=== PATIENT | female | born 1930 | race Caucasian/White ===

== ENCOUNTER 2018-04-20 14:06 | Emergency (ER) | payer MEDICARE, OTHER ==
[2018-04-20] MEDS: IV NORMAL SALINE 500ML BAG 500 ML IV (15:00)
[2018-04-20] MEDS: NEOMY/BACITR/POLYMYXIN OINT PACKET. TP (15:00)
[2018-04-20 15:17] LABS: BASO % 1 % (0-3); EOS % 1 % (0-3); LYMPH # 1.2 x10^3/uL (1.0-4.8); LYMPH % 32 % (24-48); MEAN CORPUSCULAR HEMOGLOBIN 32 pg (25-35); MEAN CORPUSCULAR HGB CONC 34 g/dL (31-37); MEAN CORPUSCULAR VOLUME 94 fL (79-100); MONO # 0.8 x10^3/uL (0.0-1.1); MONO % 19 % (0-9); NEUT # 1.8 x10^3uL (1.8-7.7); NEUT % 47 % (31-73); PLATELET COUNT 182 x10^3/uL (140-400); RED BLOOD COUNT 4.05 x10^6/uL (3.50-5.40); WHITE BLOOD COUNT 3.9 x10^3/uL (4.0-11.0)
[2018-04-20 15:34] LABS: ADD MAN DIFF? YES
[2018-04-20 16:27] LABS: ANION GAP 10 (6-14); BLOOD UREA NITROGEN 36 mg/dL (7-20); BUN/CREATININE RATIO 28 (6-20); CALCIUM 9.1 mg/dL (8.5-10.1); CARBON DIOXIDE 26 mmol/L (21-32); CHLORIDE 100 mmol/L (98-107); CREATININE 1.3 mg/dL (0.6-1.0); GFR 38.9; GLUCOSE 133 mg/dL (70-99); POTASSIUM 4.8 mmol/L (3.5-5.1); SODIUM 136 mmol/L (136-145)
[2018-04-20 16:35] LABS: ALBUMIN 3.8 g/dL (3.4-5.0); ALBUMIN/GLOBULIN RATIO 1.2 (1.0-1.7); ALK PHOS 124 U/L (46-116); ALT (SGPT) 7 U/L (14-59); AST (SGOT) 14 U/L (15-37); TOTAL BILIRUBIN 0.9 mg/dL (0.2-1.0); TOTAL PROTEIN 6.9 g/dL (6.4-8.2)
[2018-04-20 16:36] LABS: TROPONINI < 0.017 ng/mL (0.000-0.055)
[2018-04-20 16:41] LABS: CKMB MASS 1.2 ng/mL (0.0-3.6); CREATINE KINASE 66 U/L (26-192)
[2018-04-20 16:50] LABS: BILIRUBIN,URINE NEGATIVE (NEG); CLARITY,URINE CLEAR; COLOR,URINE YELLOW; GLUCOSE,URINE NEGATIVE (NEG); NITRITE,URINE NEGATIVE (NEG); PROTEIN,URINE 100 mg/dL (NEG-TRACE)
[2018-04-20 17:06] LABS: BACTERIA,URINE 0 /HPF (0-FEW); HYALINE CASTS, URINE MODERATE /HPF; RBC,URINE 0 /HPF (0-2); SQUAMOUS EPITHELIAL CELL,UR MOD /LPF; WBC,URINE 0 /HPF (0-4)
[2018-04-20 17:22] LABS: % BANDS 1 % (0-9); % EOS 1 % (0-5); % LYMPHS 32 % (24-48); % MONOS 13 % (0-10); % SEGS 53 % (35-66); ANISOCYTOSIS SLIGHT; PLT ESTIMATE ADEQUATE (ADEQUATE); POIKILOCYTOSIS SLIGHT; TEAR DROP CELLS FEW
== END 2018-04-20 18:39 | disposition home or self-care (01) ==
LOC: ER 14:06
DX: S52.591A Other fractures of lower end of right radius, initial encounter for closed fracture (principal); I10 Essential (primary) hypertension; E03.9 Hypothyroidism, unspecified; W18.39XA Other fall on same level, initial encounter; Y93.89 Activity, other specified; Y99.8 Other external cause status; Y92.89 Other specified places as the place of occurrence of the external cause
CPT/HCPCS: 29125; 36415; 70450; 72125; 73100; 80053; 81001; 82553; 83735; 84484; 85007; 85025; 93005; 99285-25; J7040

== ENCOUNTER 2018-08-26 12:24 | Emergency (ER) | payer MEDICARE, OTHER ==
[~2018-08-26] VITALS: Ht 152.4 cm; Wt 38.6 kg
[~2018-08-26 12:24] MED LIST: AMLO5TAB7 PO; CARB1TAB2 PO; CIPR250T30 PO; Hydrocodone/Acetaminophen PO; LACT1CAP19 PO; LEVO137T3 PO; LEVO25TA55 PO
[2018-08-26 13:15] LABS: BASO % 0 % (0-3); CALCIUM 9.3 mg/dL (8.5-10.1); CREATININE 0.8 mg/dL (0.6-1.0); EOS % 0 % (0-3); HEMATOCRIT 37.8 % (36.0-47.0); HEMOGLOBIN 13.2 g/dL (12.0-15.5); LYMPH # 1.7 x10^3/uL (1.0-4.8); LYMPH % 19 % (24-48); MEAN CORPUSCULAR HEMOGLOBIN 32 pg (25-35); MEAN CORPUSCULAR HGB CONC 35 g/dL (31-37); MEAN CORPUSCULAR VOLUME 92 fL (79-100); MONO # 1.7 x10^3/uL (0.0-1.1); MONO % 19 % (0-9); NEUT # 5.4 x10^3uL (1.8-7.7); NEUT % 61 % (31-73); PLATELET COUNT 148 x10^3/uL (140-400); POTASSIUM 4.5 mmol/L (3.5-5.1); RED BLOOD COUNT 4.12 x10^6/uL (3.50-5.40); RED CELL DISTRIBUTION WIDTH 13.7 % (11.5-14.5); WHITE BLOOD COUNT 8.8 x10^3/uL (4.0-11.0)
[2018-08-26 13:18] LABS: BILIRUBIN,URINE NEGATIVE (NEG); CLARITY,URINE CLEAR; COLOR,URINE YELLOW; NITRITE,URINE NEGATIVE (NEG); PH,URINE 5.5; PROTEIN,URINE 30 mg/dL (NEG-TRACE); UROBILINOGEN,URINE 0.2 mg/dL (0.2 mg/dL)
[2018-08-26 13:20] LABS: ALBUMIN 3.5 g/dL (3.4-5.0); ALBUMIN/GLOBULIN RATIO 0.9 (1.0-1.7); TOTAL BILIRUBIN 1.6 mg/dL (0.2-1.0); TOTAL PROTEIN 7.3 g/dL (6.4-8.2)
--- NOTE | 2018-08-26 13:21 | RAD ---
EXAM: AP View of the chest DATE: 08/26/2018 12:49 PM INDICATION: SOA -shortness of air COMPARISON: CT chest 04/21/2016 FINDINGS/ IMPRESSION: Moderate cardiomegaly. Atherosclerotic calcifications of the tortuous aorta are seen. Mediastinal and hilar contours are stable. Nodular opacity left lung base likely nipple shadow. Patchy perihilar and right lung base parenchymal opacities likely atelectasis. No pleural effusion or pneumothorax. Electronically signed by: Van Menjivar MD (08/26/2018 1:18 PM) [facility]
[2018-08-26 13:38] LABS: HYALINE CASTS, URINE OCCASIONAL /HPF; SQUAMOUS EPITHELIAL CELL,UR FEW /LPF
[2018-08-26 13:39] LABS: BACTERIA,URINE 0 /HPF (0-FEW); RBC,URINE 0 /HPF (0-2)
--- NOTE | 2018-08-26 13:47 | RAD ---
EXAM: CT Head without IV contrast CLINICAL HISTORY: ALTERED MENTAL STATUS, SLURRED SPEECH, PRIOR SENT, HX OF PARKINSONS COMPARISON: None. TECHNIQUE: Routine CT of the head without contrast. Soft tissues and bone windows were reviewed. PQRS compliance statement - One or more of the following individualized dose reduction techniques were utilized for this study: 1. Automated exposure control 2. Adjustment of the mA and/or kV according to patient size 3. Use of iterative reconstruction technique FINDINGS: There is no evidence of hemorrhage, mass or extra-axial fluid collection. Old infarct within the left occipital region and likely postsurgical hemispheres are stable. Chin-white differentiation is otherwise maintained with no evidence of edema. There are non-specific foci of hypodensity in the periventricular and subcortical white matter of the cerebral hemispheres. There is no mass effect or shift of the intracranial structures. The ventricles, basilar cisterns and cortical sulci are normal in size and configuration for the patients stated age. The cerebellum and brainstem are unremarkable. The calvarium demonstrates no evidence of fracture or focal lesion. There is normal aeration of the visualized paranasal sinuses and mastoid air cells. The visualized portions of the orbits are normal IMPRESSION: No evidence for acute intracranial process. 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 Electronically signed by: Van Menjivar MD (08/26/2018 1:44 PM) [facility]
[2018-08-26 14:24] LABS: % EOS 1 % (0-5); % LYMPHS 23 % (24-48); % MONOS 17 % (0-10); % SEGS 59 % (35-66)
[2018-08-26 14:25] LABS: PLT ESTIMATE ADEQUATE (ADEQUATE)
[2018-08-26] MEDS ORDERED: IV NORMAL SALINE 1000ML BAG 1,000 ML IV ONE (14:30)
[2018-08-26 16:00] VITALS: BP 156/73
--- NOTE | 2018-08-26 16:48 | PHYS DOC ---
Past Medical History Past Medical History: Arthritis, Constipation, Hypertension, Hypothyroid, Other Additional Past Medical Histor: Parkinson's,macular degeneration Past Surgical History: Tonsillectomy, Other Additional Past Surgical Histo: Spinal fusion Alcohol Use: Occasionally Drug Use: None Adult General Chief Complaint Chief Complaint: ALTERED MENTAL STATUS [facility] HPI Patient is a 88 year old female with history of Parkinson's disease and submental status changes prior to ED arrival. Patient been weak and not getting out of bed earlier today. She had not taken Parkinson's medicine. Her daughter is visiting from out of town stop by this afternoon. The patient had a bed, the patient became weak, confused and unresponsive for approximately 20-30 minutes. While lying on right side, the patient would lift her left arm straight up there for prolonged period of time. The patient does not have this seizure history. The patient fully recovered prior to ED arrival with exception of some generalized weakness. Patient denies headache, blurred vision, neck pain, focal extremity weakness or loss of sensation. Denies chest pain, shortness of breath. No fever chills, nausea vomiting. No abdominal pain. No urinary frequency urgency. No other acute symptoms or complaints. [] Review of Systems Review of Systems ROS as per HPI [] All other systems were reviewed and found to be within normal limits, except as documented in this note. Current Medications Current Medications Current Medications Medications (Trade) Dose Ordered Sig/Zane Start Time Stop Time Status Last Admin Dose Admin Sodium Chloride 1,000 ml @ 1,000 mls/hr 1X ONCE 08/26/18 14:30 08/26/18 15:29 DC 08/26/18 14:39 1,000 MLS/HR Allergies Allergies Allergies Coded Allergies Type Severity Reaction Last Updated Verified No Known Medication Allergies Allergy Unknown 01/08/16 Yes Physical Exam Physical Exam Constitutional: Well developed, well nourished, chronically debilitated and weak appearing. [] HENT: Normocephalic, atraumatic, bilateral external ears normal, oropharynx moist,nose normal. [] Eyes: PERRLA, EOMI, conjunctiva normal. [] Neck: Normal range of motion, no tenderness. [] Cardiovascular:Heart rate regular rhythm, no murmur [] Lungs & Thorax: Bilateral breath sounds clear to auscultation [] Abdomen: Bowel sounds normal, soft, no tenderness. [] Skin: Warm, dry, no erythema. [] Back: No tenderness. [] Extremities: No tenderness,no edema. [] Neurologic: Alert and oriented X 3, normal motor function, normal sensory function, no focal deficits noted. Coarse resting tremor. [] Psychologic: Affect normal, judgement normal, mood normal. [] Current Patient Data Vital Signs Vital Signs Date Time Temp Pulse Resp B/P (MAP) Pulse Ox O2 Delivery O2 Flow Rate FiO2 08/26/18 14:25 71 19 97 08/26/18 12:24 99.1 147/72 (97) Nasal Cannula 2.0 99.1 Lab Values Laboratory Tests Test 08/26/18 12:30 08/26/18 12:45 08/26/18 12:47 Urine Collection Type Void Urine Color Yellow Urine Clarity Clear Urine pH 5.5 Urine Specific [place] 1.015 Urine Protein 30 mg/dL (NEG-TRACE) Urine Glucose (UA) Negative mg/dL (NEG) Urine Ketones (Stick) Negative mg/dL (NEG) Urine Blood Negative (NEG) Urine Nitrite Negative (NEG) Urine Bilirubin Negative (NEG) Urine Urobilinogen Dipstick 0.2 mg/dL (0.2 mg/dL) Urine Leukocyte Esterase Negative (NEG) Urine RBC 0 /HPF (0-2) Urine WBC 1-4 /HPF (0-4) Urine Squamous Epithelial Cells Few /LPF Urine Bacteria 0 /HPF (0-FEW) Urine Hyaline Casts Occasional /HPF Urine Mucus Slight /LPF White Blood Count 8.8 x10^3/uL (4.0-11.0) Red Blood Count 4.12 x10^6/uL (3.50-5.40) Hemoglobin 13.2 g/dL (12.0-15.5) Hematocrit 37.8 % (36.0-47.0) Mean Corpuscular Volume 92 fL (79-100) Mean Corpuscular Hemoglobin 32 pg (25-35) Mean Corpuscular Hemoglobin Concent 35 g/dL (31-37) Red Cell Distribution Width 13.7 % (11.5-14.5) Platelet Count 148 x10^3/uL (140-400) Neutrophils (%) (Auto) 61 % (31-73) Lymphocytes (%) (Auto) 19 % (24-48) L Monocytes (%) (Auto) 19 % (0-9) H Eosinophils (%) (Auto) 0 % (0-3) Basophils (%) (Auto) 0 % (0-3) Neutrophils # (Auto) 5.4 x10^3uL (1.8-7.7) Lymphocytes # (Auto) 1.7 x10^3/uL (1.0-4.8) Monocytes # (Auto) 1.7 x10^3/uL (0.0-1.1) H Eosinophils # (Auto) 0.0 x10^3/uL (0.0-0.7) Basophils # (Auto) 0.0 x10^3/uL (0.0-0.2) Segmented Neutrophils % 59 % (35-66) Lymphocytes % 23 % (24-48) L Monocytes % 17 % (0-10) H Eosinophils % 1 % (0-5) Platelet Estimate Adequate (ADEQUATE) Prothrombin Time 14.0 SEC (11.7-14.0) Prothrombin Time INR 1.1 (0.8-1.1) Sodium Level 135 mmol/L (136-145) L Potassium Level 4.5 mmol/L (3.5-5.1) Chloride Level 102 mmol/L (98-107) Carbon Dioxide Level 24 mmol/L (21-32) Anion Gap 9 (6-14) Blood Urea Nitrogen 26 mg/dL (7-20) H Creatinine 0.8 mg/dL (0.6-1.0) Estimated GFR (Cockcroft-Gault) 68.0 BUN/Creatinine Ratio 33 (6-20) H Glucose Level 92 mg/dL (70-99) Calcium Level 9.3 mg/dL (8.5-10.1) Total Bilirubin 1.6 mg/dL (0.2-1.0) H Aspartate Amino Transferase (AST) 12 U/L (15-37) L Alanine Aminotransferase (ALT) 9 U/L (14-59) L Alkaline Phosphatase 117 U/L (46-116) H Troponin I Quantitative < 0.017 ng/mL (0.000-0.055) Total Protein 7.3 g/dL (6.4-8.2) Albumin 3.5 g/dL (3.4-5.0) Albumin/Globulin Ratio 0.9 (1.0-1.7) L Glucose (Fingerstick) 91 mg/dL (70-99) Laboratory Tests 08/26/18 12:45 Laboratory Tests 08/26/18 12:45 EKG EKG [EKG: Sinus arrhythmia, rate 75, specific T wave abnormalities.] Radiology/Procedures Radiology/Procedures CT chest: No evidence of acute intracranial process per radiology report] Course & Med Decision Making Course & Med Decision Making Pertinent Labs and Imaging studies reviewed. (See chart for details) [Patient with mental status changes etiology unclear. Given that decreased LOC and tonic movement of left arm I am concerned that she may have an undiagnosed seizure disorder. Patient with full recovery without neurologic deficit the ED. After being giving her home Parkinson medication, the patient's able to ambulate steady pace without assistance. She is adamant that she wishes to go home and declines all further evaluations treatments and hospital admission at this time. She prefers to follow-up with her primary care physician. Patient is discharged home to custody of family members. She is instructed to return to the emergency department should she develop new or concerning symptoms. Typical home safety/seizure instructions provided.] Dragon Disclaimer Dragon Disclaimer This electronic medical record was generated, in whole or in part, using a voice recognition dictation system. Departure Departure Impression: Primary Impression: Altered mental status Disposition: 01 HOME, SELF-CARE Condition: GUARDED Referrals: GENEVIEVE TAPIA MD (PCP) Patient Instructions: Altered Mental Status, Seizure Disorder, Child, Generalized Tonic-Clonic Additional Instructions: You were evaluated in the emergency department for change in level of consciousness. CT, EKG and lab work are obtained and are nondiagnostic. The cause of your symptoms has not been determined but may be related to undiagnosed seizure disorder or another undiagnosed condition. As you have decided not to stay in the hospital, it is important that you continue all your current medications and avoid any potential dangerous activity and follow-up with your PCP and/or neurologist early next week for reevaluation. The meantime , if you develop new or worsening symptoms, return to the emergency department. CRISTAL WATSON DO Aug 26, 2018 16:48
--- NOTE | 2018-08-27 07:37 | EKG ---
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
== END 2018-08-26 16:59 | disposition home or self-care (01) ==
LOC: ER 12:24
DX: R41.82 Altered mental status, unspecified (principal); R53.1 Weakness; R41.0 Disorientation, unspecified; E03.9 Hypothyroidism, unspecified; I10 Essential (primary) hypertension; Z98.1 Arthrodesis status; G20 Parkinson's disease
CPT/HCPCS: 36415; 70450; 71045; 80053; 81001; 82962; 84484; 85007; 85025; 85610; 93005; 96360; 99285; J7030

== ENCOUNTER 2019-04-28 09:00 | Inpatient (IN) | payer MEDICARE, OTHER ==
[~2019-04-28] VITALS: Ht 152.4 cm; Wt 40.1 kg
[~2019-04-28 09:00] MED LIST changes: +AMLO5TAB10 PO; -AMLO5TAB7 PO
[2019-04-28 09:20] LABS: BASO % 1 % (0-3); EOS % 1 % (0-3); HEMATOCRIT 35.7 % (36.0-47.0); HEMOGLOBIN 12.1 g/dL (12.0-15.5); LYMPH # 1.3 x10^3/uL (1.0-4.8); LYMPH % 33 % (24-48); MEAN CORPUSCULAR HEMOGLOBIN 32 pg (25-35); MEAN CORPUSCULAR HGB CONC 34 g/dL (31-37); MEAN CORPUSCULAR VOLUME 94 fL (79-100); MONO # 0.9 x10^3/uL (0.0-1.1); MONO % 23 % (0-9); NEUT # 1.7 x10^3/uL (1.8-7.7); NEUT % 43 % (31-73); PLATELET COUNT 196 x10^3/uL (140-400); RED BLOOD COUNT 3.81 x10^6/uL (3.50-5.40); RED CELL DISTRIBUTION WIDTH 13.6 % (11.5-14.5)
--- NOTE | 2019-04-28 09:21 | PHYS DOC ---
Past Medical History Past Medical History: Arthritis, Constipation, Hypertension, Hypothyroid, Other Additional Past Medical Histor: Parkinson's,macular degeneration Past Surgical History: Tonsillectomy, Other Additional Past Surgical Histo: Spinal fusion Alcohol Use: Occasionally Drug Use: None Adult General HPI HPI 88-year-old female presents to ER via EMS from a local assisted nursing facility with her Lizandro who reports pt had change in MS this morning. Has been reports patient woke around 7 AM and since awakening was nonverbal with his questions. He reports patient had increased fatigue and he "dragged her out of bed". He denies patient with any recent falls or injury. He reports patient has history of Parkinson's. On arrival patient is answering questions and is A&Ox3 with clear speech. He reports patient is normal limits on mental status currently. Patient is denying any pain. Pt's husb. denies pt with V/D, fever, or c/o CP/SOA/dizziness. Per patient's assisted living paperwork she is a DNR. Pt's states patient takes low-dose aspirin daily denies other anticoagulants. EMS reports pt's BS was 99. Review of Systems Review of Systems Constitutional: Denies fever or chills. Reports generalized fatigue/weakness- pe r pt's husb. she had increased fatigue this morning Eyes: Denies change in visual acuity, redness, or eye pain [] HENT: Denies nasal congestion or sore throat [] Respiratory: Denies cough or shortness of breath [] Cardiovascular: No additional information not addressed in HPI [] GI: Denies abdominal pain, nausea, vomiting, bloody stools or diarrhea [] : Denies dysuria or hematuria [] Musculoskeletal: Denies back/neck pain or joint pain [] Integument: Denies rash or skin lesions [] Neurologic: Denies headache, focal weakness or sensory changes. Denies dizziness. Pt's husb. reports pt was nonverbal this morning Endocrine: Denies polyuria or polydipsia [] All other systems were reviewed and found to be within normal limits, except as documented in this note. Current Medications Current Medications Allergies Allergies Allergies Coded Allergies Type Severity Reaction Last Updated Verified No Known Medication Allergies Allergy Unknown 01/08/16 Yes Physical Exam Physical Exam Constitutional: No acute distress, non-toxic appearance. Frail/fatigued appearance. Clear speech answering questions appropr. HENT: Normocephalic, atraumatic, bilateral ears normal, mucous membranes pink/dry, nose normal. [] Eyes: 2 mm PERRLA, no nystagmus, conjunctiva normal, no discharge. [] Neck: Normal range of motion, no tenderness, supple, no stridor. [] Cardiovascular: Heart rate regular rhythm, no murmur [] Lungs & Thorax: Bilateral breath sounds clear to auscultation- resp. equal/nonlabored. Abdomen: Bowel sounds normal, soft, no tenderness/rigidity, no masses, no pulsatile masses. [] Skin: Warm, dry, no erythema, no rash. [] Back: No tenderness, no CVA tenderness. [] Extremities: No tenderness, no cyanosis, no clubbing, ROM intact- slow purposeful movements, no edema. [] Neurologic: Alert and oriented X 3, motor function NL per husb. with slow purposeful movements, normal sensory function, no focal deficits noted. Analytical Chemist equal. Facial features symmetric Psychologic: Affect normal, judgement normal, mood normal. [] Current Patient Data Vital Signs Vital Signs Date Time Temp Pulse Resp B/P (MAP) Pulse Ox O2 Delivery O2 Flow Rate FiO2 04/28/19 09:00 98.9 72 16 138/76 (96) 97 Room Air 98.9 Lab Values Laboratory Tests Test 04/28/19 09:04 White Blood Count 4.0 x10^3/uL (4.0-11.0) Red Blood Count 3.81 x10^6/uL (3.50-5.40) Hemoglobin 12.1 g/dL (12.0-15.5) Hematocrit 35.7 % (36.0-47.0) L Mean Corpuscular Volume 94 fL (79-100) Mean Corpuscular Hemoglobin 32 pg (25-35) Mean Corpuscular Hemoglobin Concent 34 g/dL (31-37) Red Cell Distribution Width 13.6 % (11.5-14.5) Platelet Count 196 x10^3/uL (140-400) Neutrophils (%) (Auto) 43 % (31-73) Lymphocytes (%) (Auto) 33 % (24-48) Monocytes (%) (Auto) 23 % (0-9) H Eosinophils (%) (Auto) 1 % (0-3) Basophils (%) (Auto) 1 % (0-3) Neutrophils # (Auto) 1.7 x10^3/uL (1.8-7.7) L Lymphocytes # (Auto) 1.3 x10^3/uL (1.0-4.8) Monocytes # (Auto) 0.9 x10^3/uL (0.0-1.1) Eosinophils # (Auto) 0.0 x10^3/uL (0.0-0.7) Basophils # (Auto) 0.0 x10^3/uL (0.0-0.2) Segmented Neutrophils % 56 % (35-66) Lymphocytes % 28 % (24-48) Monocytes % 16 % (0-10) H Platelet Estimate Adequate (ADEQUATE) Large Platelets Present Sodium Level 129 mmol/L (136-145) L Potassium Level 4.7 mmol/L (3.5-5.1) Chloride Level 94 mmol/L (98-107) L Carbon Dioxide Level 24 mmol/L (21-32) Anion Gap 11 (6-14) Blood Urea Nitrogen 20 mg/dL (7-20) Creatinine 0.9 mg/dL (0.6-1.0) Estimated GFR (Cockcroft-Gault) 59.4 BUN/Creatinine Ratio 22 (6-20) H Glucose Level 92 mg/dL (70-99) Calcium Level 9.1 mg/dL (8.5-10.1) Magnesium Level 1.9 mg/dL (1.8-2.4) Total Bilirubin 1.1 mg/dL (0.2-1.0) H Aspartate Amino Transferase (AST) 19 U/L (15-37) Alanine Aminotransferase (ALT) 16 U/L (14-59) Alkaline Phosphatase 170 U/L (46-116) H Creatine Kinase 115 U/L (26-192) Troponin I Quantitative < 0.017 ng/mL (0.000-0.055) Total Protein 6.7 g/dL (6.4-8.2) Albumin 3.6 g/dL (3.4-5.0) Albumin/Globulin Ratio 1.2 (1.0-1.7) Laboratory Tests 04/28/19 09:04 Laboratory Tests 04/28/19 09:04 EKG EKG EKG obtained 04/28/19 at [address] Mauricio Sinus rhythm Incomplete Rt BBB Rate 69 No STEMI Radiology/Procedures Radiology/Procedures PROCEDURE: CT HEAD WO CONTRAST PQRS Compliance statement: One or more of the following individualized dose reduction techniques were utilized for this examination: 1. Automated exposure control. 2. Adjustment of the mA and/or kV according to patient size. 3. Use of iterative reconstruction technique. Indication:Mental status change. TECHNIQUE: CT head without IV contrast COMPARISON: 08/26/2018. FINDINGS: No pathologic extra-axial or intra-axial fluid collection. Mild atrophy with ex vacuo dilation of the ventricles. No acute intracranial bleed. Small encephalomalacia along the medial aspect of the left occipital lobe, stable likely old infarct. Periventricular low-attenuation of the right matter noted. No new focal loss of padgett-white differentiation. Visualized orbits are within normal limits. No suspicious calvarial lesion. Visualized paranasal sinuses and mastoid air cells are clear. IMPRESSION: 1. No acute intracranial bleed. 2. 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 If concern for acute ischemic stroke is high, please consider MRI brain. 3. Mild white matter changes likely secondary to chronic microvascular ischemic disease. Electronically signed by: Roel Whitt DO (04/28/2019 9:39 AM) [facility] DICTATED and SIGNED BY: ROEL WHITT DO DATE: 04/28/19 09 PROCEDURE: CHEST AP ONLY Indication: Fatigue, shortness of breath TECHNIQUE: Single upright AP view of the chest COMPARISON: 08/26/2018 FINDINGS: Heart is normal in size. Lungs are clear. No pneumothorax or pleural effusion. Visualized bony thorax is within normal limits. IMPRESSION: No acute pulmonary process. Electronically signed by: Roel Whitt DO (04/28/2019 9:40 AM) [facility] DICTATED and SIGNED BY: ROEL WHITT DO DATE: 04/28/19 09 Course & Med Decision Making Course & Med Decision Making Pertinent Labs and Imaging studies reviewed. (See chart for details) 1020: Patient was evaluated in the ER following an episode at home where she was alert but nonverbal this morning which resolved FACING SLITTER. On arrival and during ER stay patient has been A&Ox3. She has voiced no complaints. EKG was obtained with no acute ST elevation or STEMI and troponin was negative. Na was 129 so 500 mL bolus was given while in the ER. UA is pending. Discussed admission with patient and her both are agreeable with this plan. Will admit to hospitalist services to telemetry floor for further care and monitoring. Patient's records shows history of TIAs discussed this possibility with patient and her . 1030: Spoke with Dr. García, hospitalist and discussed patient's case and admit plan. Per his request will consult neurology with admission orders. Dragon Disclaimer Dragon Disclaimer This electronic medical record was generated, in whole or in part, using a voice recognition dictation system. Departure Departure Impression: Primary Impression: Weakness generalized Additional Impression: Hyponatremia Disposition: ADMITTED INPATIENT Admitting Physician: ALBERTINA Condition: STABLE Referrals: GENEVIEVE TAPIA MD (PCP) Scripts Lorazepam (ATIVAN) 0.5 Mg Tablet 0.5 MG PO PRN Q4HRS PRN for ANXIETY / AGITATION, #30 TAB Prov: WEI BURNETTE MD 04/30/19 Albuterol Sulfate (Proair Hfa) 8.5 Gm Hfa.aer.ad 2.5 MG NEB PRN Q4HRS PRN for SHORTNESS OF BREATH for 30 Days, INHALER Prov: WEI BURNETTE MD 04/30/19 [Hydrocodone/Acetaminophen] 1 TAB TABLET No Conflict Check 1 TAB PO PRN Q6HRS PRN for PAIN, #30 Prov: WEI BURNETTE MD 04/30/19 Problem Qualifiers CLEMENT PFEIFFER APRN Apr 28, 2019 09:21
[2019-04-28 09:25] LABS: CALCIUM 9.1 mg/dL (8.5-10.1); CREATININE 0.9 mg/dL (0.6-1.0); GFR 59.4; POTASSIUM 4.7 mmol/L (3.5-5.1)
[2019-04-28 09:36] LABS: ALBUMIN 3.6 g/dL (3.4-5.0); ALBUMIN/GLOBULIN RATIO 1.2 (1.0-1.7); MAGNESIUM 1.9 mg/dL (1.8-2.4); TOTAL BILIRUBIN 1.1 mg/dL (0.2-1.0); TOTAL PROTEIN 6.7 g/dL (6.4-8.2)
--- NOTE | 2019-04-28 09:42 | RAD ---
PQRS Compliance statement: One or more of the following individualized dose reduction techniques were utilized for this examination: 1. Automated exposure control. 2. Adjustment of the mA and/or kV according to patient size. 3. Use of iterative reconstruction technique. Indication:Mental status change. TECHNIQUE: CT head without IV contrast COMPARISON: 08/26/2018. FINDINGS: No pathologic extra-axial or intra-axial fluid collection. Mild atrophy with ex vacuo dilation of the ventricles. No acute intracranial bleed. Small encephalomalacia along the medial aspect of the left occipital lobe, stable likely old infarct. Periventricular low-attenuation of the right matter noted. No new focal loss of padgett-white differentiation. Visualized orbits are within normal limits. No suspicious calvarial lesion. Visualized paranasal sinuses and mastoid air cells are clear. IMPRESSION: 1. No acute intracranial bleed. 2. 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 If concern for acute ischemic stroke is high, please consider MRI brain. 3. Mild white matter changes likely secondary to chronic microvascular ischemic disease. Electronically signed by: Roel Whitt DO (04/28/2019 9:39 AM) [facility]
--- NOTE | 2019-04-28 09:43 | RAD ---
Indication: Fatigue, shortness of breath TECHNIQUE: Single upright AP view of the chest COMPARISON: 08/26/2018 FINDINGS: Heart is normal in size. Lungs are clear. No pneumothorax or pleural effusion. Visualized bony thorax is within normal limits. IMPRESSION: No acute pulmonary process. Electronically signed by: Roel Whitt DO (04/28/2019 9:40 AM) [facility]
[2019-04-28] MEDS ORDERED: IV NORMAL SALINE 500ML BAG 500 ML IV ONE (10:30)
[2019-04-28 10:43] LABS: % LYMPHS 28 % (24-48); % MONOS 16 % (0-10); % SEGS 56 % (35-66)
[2019-04-28 10:44] LABS: PLT ESTIMATE ADEQUATE (ADEQUATE)
--- NOTE | 2019-04-28 10:48 | PDOC1 ---
History and Physical Date of Admission Date of Admission DATE: 04/28/19 TIME: 10:46 Identification/Chief Complaint Chief Complaint seen in er, presents to ER via EMS from a local assisted nursing facility with her Lizandro who reports pt had change in MS this morning. patient awoke around 7 AM and since awakening was nonverbal to questions. reports patient had increased fatigue and he "dragged her out of bed". He denies patient with any recent falls or injury. He reports patient has history of Parkinson's. patient is answering questions and is A&Ox3 with clear speech, not oriented to correct year, thinks this is 2017 , cannot name current month . reports patient is normal limits on mental status currently. Patient is denying any pain. Pt's husb. denies pt with V/D, fever, or c/o CP/SOA/dizziness. Past Medical History Past Medical History Past Medical History Past Medical History Past Medical History: Arthritis, Constipation, Hypertension, Hypothyroid, Other Additional Past Medical Histor: Parkinson's,macular degeneration Past Surgical History: Tonsillectomy, Other Additional Past Surgical Histo: Spinal fusion Alcohol Use: Occasionally Drug Use: None family hx htn Cardiovascular: HTN CENTRAL NERVOUS SYSTEM: Other GI: GERD Heme/Onc: No pertinent hx Hepatobiliary: No pertinent hx Psych: No pertinent hx Rheumatologic: No pertinent hx Infectious disease: No pertinent hx Endocrine: Hyperthyroidism Past Surgical History Past Surgical History: Tonsillectomy, Other Family History Family History: No Significant, Hypertension Social History Smoke: No ALCOHOL: rare Drugs: None Current Problem List Problem List Problems Medical Problems: (1) Hyponatremia Status: Acute (2) Weakness generalized Status: Acute Current Medications Current Medications Current Medications Sodium Chloride 500 ml @ 500 mls/hr 1X ONCE IV ; Start 04/28/19 at 10:30; Stop 04/28/19 at 11:29 Active Scripts Active Culturelle (Lactobacillus Rhamnosus Gg) 1 Each Cap.sprink 1 Cap PO BID 30 Days Cipro (Ciprofloxacin Hcl) 250 Mg Tablet 250 Mg PO DAILY 10 Days [Hydrocodone/Acetaminophen] 1 TAB Tablet 1 Tab PO PRN Q6HRS PRN Reported Amlodipine Besylate 5 Mg Tablet 5 Mg PO DAILY Sinemet 25-100 Mg Tablet (Carbidopa/Levodopa) 1 Each Tablet 1 Tab PO Q4HRS Levothyroxine Sodium 137 Mcg Tablet 1 Tab PO DAILY Allergies Allergies: Coded Allergies: No Known Medication Allergies (Verified Allergy, Unknown, 01/08/16) ROS Review of System Review of Systems Review of Systems Constitutional: Denies fever or chills. Reports generalized fatigue/weakness- per pt's husb. she had increased fatigue this morning Eyes: Denies change in visual acuity, redness, or eye pain [] HENT: Denies nasal congestion or sore throat [] Respiratory: Denies cough or shortness of breath [] Cardiovascular: No additional information not addressed in HPI [] GI: Denies abdominal pain, nausea, vomiting, bloody stools or diarrhea [] : Denies dysuria or hematuria [] Musculoskeletal: Denies back/neck pain or joint pain [] Integument: Denies rash or skin lesions [] Neurologic: Denies headache, focal weakness or sensory changes. Denies dizziness. Pt's husb. reports pt was nonverbal this morning thinks this is 2017 Endocrine: Denies polyuria or polydipsia [] 14 pt systems were reviewed and found to be within normal limits, except as documented Physical Exam Physical Exam Physical Exam Physical Exam Constitutional: No acute distress, non-toxic appearance. Frail/fatigued appearance. Clear speech answering questions confused to details such as year, masked facies HENT: Normocephalic, atraumatic, bilateral ears normal, mucous membranes pink/dry, nose normal. [] Eyes: 2 mm PERRLA, no nystagmus, conjunctiva normal, no discharge. [] Neck: Normal range of motion, no tenderness, supple, no stridor. [] Cardiovascular: Heart rate regular rhythm, gr 2/6 diastolic murmur [] Lungs & Thorax: Bilateral breath sounds clear to auscultation- resp. equal/nonlabored. Abdomen: Bowel sounds normal, soft, no tenderness/rigidity, no masses, no pulsatile masses. [] Skin: Warm, dry, no erythema, no rash. [] Back: No tenderness, no CVA tenderness. [] Extremities: No tenderness, no cyanosis, no clubbing, ROM intact- slow purposeful movements, no edema. [] Neurologic: Alert and oriented X 3, motor function NL per husb. with slow purposeful movements, normal sensory function, no focal deficits noted. [employer] equal. Facial features symmetric Psychologic: Affect flat, judgement fair, mood normal. [] General: Cooperative, mild distress HEENT: Atraumatic, Mucous membr. moist/pink Breasts: Not examined Abdomen: Normal bowel sounds, Soft Rectal Exam: not examined Vitals Vitals Vital Signs Date Time Temp Pulse Resp B/P (MAP) Pulse Ox O2 Delivery O2 Flow Rate FiO2 04/28/19 09:00 98.9 72 16 138/76 (96) 97 Room Air 98.9 Labs Labs Laboratory Tests Test 04/28/19 09:04 White Blood Count 4.0 x10^3/uL (4.0-11.0) Red Blood Count 3.81 x10^6/uL (3.50-5.40) Hemoglobin 12.1 g/dL (12.0-15.5) Hematocrit 35.7 % (36.0-47.0) Mean Corpuscular Volume 94 fL (79-100) Mean Corpuscular Hemoglobin 32 pg (25-35) Mean Corpuscular Hemoglobin Concent 34 g/dL (31-37) Red Cell Distribution Width 13.6 % (11.5-14.5) Platelet Count 196 x10^3/uL (140-400) Neutrophils (%) (Auto) 43 % (31-73) Lymphocytes (%) (Auto) 33 % (24-48) Monocytes (%) (Auto) 23 % (0-9) Eosinophils (%) (Auto) 1 % (0-3) Basophils (%) (Auto) 1 % (0-3) Neutrophils # (Auto) 1.7 x10^3/uL (1.8-7.7) Lymphocytes # (Auto) 1.3 x10^3/uL (1.0-4.8) Monocytes # (Auto) 0.9 x10^3/uL (0.0-1.1) Eosinophils # (Auto) 0.0 x10^3/uL (0.0-0.7) Basophils # (Auto) 0.0 x10^3/uL (0.0-0.2) Segmented Neutrophils % 56 % (35-66) Lymphocytes % 28 % (24-48) Monocytes % 16 % (0-10) Platelet Estimate Adequate (ADEQUATE) Large Platelets Present Sodium Level 129 mmol/L (136-145) Potassium Level 4.7 mmol/L (3.5-5.1) Chloride Level 94 mmol/L (98-107) Carbon Dioxide Level 24 mmol/L (21-32) Anion Gap 11 (6-14) Blood Urea Nitrogen 20 mg/dL (7-20) Creatinine 0.9 mg/dL (0.6-1.0) Estimated GFR (Cockcroft-Gault) 59.4 BUN/Creatinine Ratio 22 (6-20) Glucose Level 92 mg/dL (70-99) Calcium Level 9.1 mg/dL (8.5-10.1) Magnesium Level 1.9 mg/dL (1.8-2.4) Total Bilirubin 1.1 mg/dL (0.2-1.0) Aspartate Amino Transf (AST/SGOT) 19 U/L (15-37) Alanine Aminotransferase (ALT/SGPT) 16 U/L (14-59) Alkaline Phosphatase 170 U/L (46-116) Troponin I Quantitative < 0.017 ng/mL (0.000-0.055) Total Protein 6.7 g/dL (6.4-8.2) Albumin 3.6 g/dL (3.4-5.0) Albumin/Globulin Ratio 1.2 (1.0-1.7) Laboratory Tests Test 04/28/19 09:04 White Blood Count 4.0 x10^3/uL (4.0-11.0) Red Blood Count 3.81 x10^6/uL (3.50-5.40) Hemoglobin 12.1 g/dL (12.0-15.5) Hematocrit 35.7 % (36.0-47.0) Mean Corpuscular Volume 94 fL (79-100) Mean Corpuscular Hemoglobin 32 pg (25-35) Mean Corpuscular Hemoglobin Concent 34 g/dL (31-37) Red Cell Distribution Width 13.6 % (11.5-14.5) Platelet Count 196 x10^3/uL (140-400) Neutrophils (%) (Auto) 43 % (31-73) Lymphocytes (%) (Auto) 33 % (24-48) Monocytes (%) (Auto) 23 % (0-9) Eosinophils (%) (Auto) 1 % (0-3) Basophils (%) (Auto) 1 % (0-3) Neutrophils # (Auto) 1.7 x10^3/uL (1.8-7.7) Lymphocytes # (Auto) 1.3 x10^3/uL (1.0-4.8) Monocytes # (Auto) 0.9 x10^3/uL (0.0-1.1) Eosinophils # (Auto) 0.0 x10^3/uL (0.0-0.7) Basophils # (Auto) 0.0 x10^3/uL (0.0-0.2) Segmented Neutrophils % 56 % (35-66) Lymphocytes % 28 % (24-48) Monocytes % 16 % (0-10) Platelet Estimate Adequate (ADEQUATE) Large Platelets Present Sodium Level 129 mmol/L (136-145) Potassium Level 4.7 mmol/L (3.5-5.1) Chloride Level 94 mmol/L (98-107) Carbon Dioxide Level 24 mmol/L (21-32) Anion Gap 11 (6-14) Blood Urea Nitrogen 20 mg/dL (7-20) Creatinine 0.9 mg/dL (0.6-1.0) Estimated GFR (Cockcroft-Gault) 59.4 BUN/Creatinine Ratio 22 (6-20) Glucose Level 92 mg/dL (70-99) Calcium Level 9.1 mg/dL (8.5-10.1) Magnesium Level 1.9 mg/dL (1.8-2.4) Total Bilirubin 1.1 mg/dL (0.2-1.0) Aspartate Amino Transf (AST/SGOT) 19 U/L (15-37) Alanine Aminotransferase (ALT/SGPT) 16 U/L (14-59) Alkaline Phosphatase 170 U/L (46-116) Troponin I Quantitative < 0.017 ng/mL (0.000-0.055) Total Protein 6.7 g/dL (6.4-8.2) Albumin 3.6 g/dL (3.4-5.0) Albumin/Globulin Ratio 1.2 (1.0-1.7) Images Images HISTORY Right upper extremity weakness. TECHNIQUE Multiplanar and multi sequence magnetic resonance imaging of brain was performed without contrast. COMPARISON 05/08/2013 FINDINGS There is no restricted diffusion to suggest acute or subacute infarction. There is no susceptibility effect to suggest hemorrhage. There is no mass effect or midline shift. There is no hydrocephalus. There are scattered areas of T2/FLAIR hyperintensity within the cerebral white matter, a nonspecific finding likely due to chronic small vessel disease. There is encephalomalacia with gliosis within the medial left occipital lobe likely due to chronic infarction. There is also T2/FLAIR hyperintensity within the right cerebellum without corresponding restricted diffusion, suggesting a chronic infarct. There is linear encephalomalacia within the left cerebellum likely due to chronic infarction. There is a chronic lacunar infarct within the left thalamus. There is cerebral and cerebellar volume loss. There are normal flow voids within the cerebral vessels. There are findings consistent with cataract surgery. There is mild paranasal sinus mucosal thickening. The mastoid air cells are unremarkable. IMPRESSION 1. No acute intracranial finding. 2. Scattered areas of signal abnormality within the cerebral white matter, a nonspecific finding likely due to chronic small vessel disease. This is slightly progressed compared to the prior study. 3. Chronic lacunar infarct within the left thalamus and small chronic infarct within the left cerebellum, both of which are stable compared to the prior study. 4. Stable T2/FLAIR hyperintensity within the right cerebellum likely due to chronic infarction. Electronically signed by: Mariola Styles (Jan 07, 2016 16:59:33) LEFT VENTRICLE The left ventricle is normal size. There is mild concentric left ventricular hypertrophy. The left ventricular systolic function is normal and the ejection fraction is within normal range. The Ejection Fraction is 55-60%. There is normal LV segmental wall motion. Transmitral Doppler flow pattern is Grade I- abnormal relaxation pattern. RIGHT VENTRICLE The right ventricle is normal size. The right ventricular systolic function is normal. ATRIA The left atrium size is normal. The right atrium size is normal. AORTIC VALVE The aortic valve is moderatly calcified but opens well. The aortic valve is tri- cuspid. Doppler and Color Flow revealed moderate aortic regurgitation. There is no significant aortic valvular stenosis. MITRAL VALVE The mitral valve is mildly calcified but opens well. There is no evidence of mitral valve prolapse. There is no mitral valve stenosis. Doppler and Color Flow revealed mild mitral regurgitation. TRICUSPID VALVE The tricuspid valve is normal in structure. Doppler and Color Flow revealed mild tricuspid regurgitation. The PA pressure was estimated at 35 mmHg. There is no tricuspid valve stenosis. PULMONIC VALVE The pulmonic valve is not well visualized. Doppler and Color Flow revealed trace pulmonic valvular regurgitation. There is no pulmonic valvular stenosis. GREAT VESSELS The aortic root is normal in size. The IVC is normal in size and collapses >50% with inspiration. PERICARDIAL EFFUSION There is a small- pericardial effusion. Critical Notification Critical Value: No <Conclusion> The left ventricle is normal size. There is mild concentric left ventricular hypertrophy. The left ventricular systolic function is normal and the ejection fraction is within normal range. The Ejection Fraction is 55-60%. Transmitral Doppler flow pattern is Grade I-abnormal relaxation pattern. There is a small- pericardial effusion. There is no significant aortic valvular stenosis. Doppler and Color Flow revealed moderate aortic regurgitation. The left atrium is of a normal size There is no mitral valve stenosis. Doppler and Color Flow revealed mild mitral regurgitation. Doppler and Color Flow revealed mild tricuspid regurgitation. The PA pressure was estimated at 35 mmHg. The right ventricle and right atrium are of a normal size. REASON: husb. reports change in pt's MS this a.m- NL on arrival to ER PROCEDURE: CT HEAD WO CONTRAST PQRS Compliance statement: One or more of the following individualized dose reduction techniques were utilized for this examination: 1. Automated exposure control. 2. Adjustment of the mA and/or kV according to patient size. 3. Use of iterative reconstruction technique. Indication:Mental status change. TECHNIQUE: CT head without IV contrast COMPARISON: 08/26/2018. FINDINGS: No pathologic extra-axial or intra-axial fluid collection. Mild atrophy with ex vacuo dilation of the ventricles. No acute intracranial bleed. Small encephalomalacia along the medial aspect of the left occipital lobe, stable likely old infarct. Periventricular low-attenuation of the right matter noted. No new focal loss of padgett-white differentiation. Visualized orbits are within normal limits. No suspicious calvarial lesion. Visualized paranasal sinuses and mastoid air cells are clear. IMPRESSION: 1. No acute intracranial bleed. 2. 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 If concern for acute ischemic stroke is high, please consider MRI brain. 3. Mild white matter changes likely secondary to chronic microvascular ischemic disease. Electronically signed by: Roel Whitt DO (04/28/2019 9:39 AM) [facility] VTE Prophylaxis Ordered VTE Prophylaxis Devices: Yes VTE Pharmacological Prophylaxi: Yes Assessment/Plan Assessment/Plan IMPRESSION: 1. No acute intracranial bleed. possible TIA, altered mental status, POA, improving 2. 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 consider MRI brain. 3. Mild white matter changes likely secondary to chronic microvascular ischemic disease. Chronic lacunar infarct within the left thalamus and small chronic infarct within the left cerebellum,by MRI HEAD 2016 4-hypothyroidism 5-fatigue and debility 6-MODERATE malnutrition 7-HTN 8.parkinson's disease, advanced , suspect mild dementia 9.moderate aortic regurgitation.by echo in 2014 10. mild hyponatremia 11. FALL RISK PLAN ADMIT Neurology consult tele neurochecks q 4 hrs home meds PT/OT/ST FALL PRECAUTIONS HIGH AM, PM CORTISOL TSH 74 min pt exam, chart review, > 50% of time spent with exam, chart review, pt care coordination CHRISTOPHER VALADEZ MD Apr 28, 2019 10:48
[2019-04-28] MEDS ORDERED: LORazepam 0.5 MG TABLET PO PRN (11:30)
[2019-04-28] MEDS ORDERED: ONDANSETRON PF 4 MG/2 ML VIAL. IV PRN (11:30)
[2019-04-28] MEDS ORDERED: SODIUM PHOSPHATES 19/7GM 133 ML ENEMA. PR PRN (11:30)
[2019-04-28] MEDS ORDERED: cloNIDine HCL 0.1 MG TABLET PO PRN (11:30)
[2019-04-28] MEDS ORDERED: MAG HYDROX/ALUMINUM HYD/SIMETH 30 ML ORAL.SUSP PO PRN (11:30)
[2019-04-28] MEDS ORDERED: ACETAMINOPHEN 650 MG/20.3 ML SOLUTION. GT PRN (11:30)
[2019-04-28] MEDS ORDERED: DOCUSATE SODIUM 100 MG CAPSULE. PO PRN (11:30)
[2019-04-28] MEDS ORDERED: ALBUTEROL SULFATE 2.5 MG/3 ML NEBU. NEB PRN (11:30)
[2019-04-28 11:54] VITALS: BP 144/78
[2019-04-28] MEDS ORDERED: LEVOTHYROXINE 137 MCG TABLET PO SCH (12:00)
[2019-04-28] MEDS ORDERED: amLODIPine BESYLATE 5 MG TABLET PO SCH (12:00)
[2019-04-28] MEDS: IV NORMAL SALINE 1000ML BAG 1,000 ML IV SCH (12:23)
[2019-04-28] MEDS: CARBIDOPA/LEVODOPA 25/100MG TABLET PO SCH ×3 (12:27→20:00)
[2019-04-28] MEDS: ASPIRIN ENTERIC COATED 325 MG TABLET.DR. PO SCH (12:27)
[2019-04-28] MEDS: LACTOBACILLUS RHAMNOSUS GG 1 CAPSULE. PO SCH ×2 (12:28→21:00)
--- NOTE | 2019-04-28 12:34 | RAD ---
DOPPLER CAROTID BILAT Clinical Indication: CVA.. Procedure: Pulsed wave and color-flow duplex imaging was utilized to evaluate the extracranial carotid arteries. Comparison: None. Findings: RIGHT SIDE: Mild atherosclerotic plaque on padgett-scale images. Distal CCA peak systolic velocity 58 cm/sec. ICA peak systolic velocity 64 cm/sec. The right ICA/CCA ratio is 1.1. Flow within the right vertebral artery and right ECA is directed antegrade. LEFT SIDE: Mild atherosclerotic plaque on padgett-scale images. Distal CCA peak systolic velocity 59 cm/sec. ICA peak systolic velocity 74 cm/sec. The left ICA/CCA ratio is 1.3. Flow within the left vertebral artery and left ECA is directed antegrade. Carotid legend: CCA = common carotid artery ICA = internal carotid artery ECA = external carotid artery IMPRESSION: No hemodynamically significant stenosis. Electronically signed by: Roel Whitt DO (04/28/2019 12:32 PM) [facility] [place]
--- NOTE | 2019-04-28 13:36 | EKG ---
[facility] [address] [place] [address] Test Date: 2019-04-28 Test Time: 09:10:07 Pat Name: ALIX KAPLAN Department: Room: Gender: F System Trainer: : 1930 Requested By: CLEMENT PFEIFFER Order Number: [id number] Reading MD: Measurements Intervals [place] Rate: 69 P: 32 NH: 162 QRS: 28 QRSD: 116 T: 4 QT: 408 QTc: 439 Interpretive Statements SINUS RHYTHM INCOMPLETE RIGHT BUNDLE BRANCH BLOCK RVH WITH REPOLARIZATION ABNORMALITY QRS(T) CONTOUR ABNORMALITY CONSIDER ANTEROSEPTAL MYOCARDIAL DAMAGE ABNORMAL ECG RI6.01 No previous ECG available for comparison
[2019-04-28 14:31] LABS: BILIRUBIN,URINE NEGATIVE (NEG); CLARITY,URINE CLEAR; COLOR,URINE YELLOW; NITRITE,URINE NEGATIVE (NEG); PH,URINE 6.5; PROTEIN,URINE NEGATIVE (NEG-TRACE); UROBILINOGEN,URINE 0.2 mg/dL (0.2 mg/dL)
[2019-04-28 15:09] VITALS: BP 139/68
[2019-04-28 15:20] LABS: SQUAMOUS EPITHELIAL CELL,UR FEW /LPF
[2019-04-28 15:21] LABS: BACTERIA,URINE 0 /HPF (0-FEW)
--- NOTE | 2019-04-28 17:28 | PDOC ---
PROGRESS NOTES Assessment Assessment MS changes. Generalized weakness LE > UE. Gait disorder. PD. 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 Aortic atherosclerosis. Cardiomegaly. RECOMMENDATIONS/PLAN: Continue ASA 325 mg daily. Increase Sinemet 25/100 mg to q4h. Lad for CK, TSH, Vit B12. C/L spine CT. Treat the underlying medical diseases. OT/OT. Discussed with her at bedside on . HISTORY OF THE PRESENT ILLNESS: 88-y-old female patient with above medical diseases developed symptoms MS changes and generalized weakness LE > UE and gait difficulties. She stated that her LE weakness more obvious and she might not be able to recover to her baseline of walking with a walker. She was reportedly had MS changes as well. No cranial nerve symptoms. LE are not involved. She does not take ASA or any antiplatelet agent. PAST MEDICAL HISTORY: Refer to above. PAST SURGERY HISTORY: Tonsillectomy Spine fusion. ALLERGY: Unknown MEDICATIONS: Refer to MAR. FAMILY HISTORY: Non contributory. SOCIAL HISTORY: Denies smoking, drinking, and illicit drug use. REVIEW OF SYSTEMS: Constitutional: No malnutrition, weight loss, night sweats, cachexia Head: No traumatic brain or head injury. Skin: No edema, or rash. Ear: No infection, tinnitus. Eyes: No vision loss, color blindness Nose: No bleeding or purulent discharges. Neck: No injury, lymph note enlargement Breast: No history of cancer, masses, discharges. Cardiac: Cardiomegaly, HTN, HLD. Pulmonary: No hemoptysis, dyspnea GI: No melena, hematochezia Urinary/genital: UTI. Endocrinologic: No symptoms of gigantism, dwarf, hyperphasia, cousin face, craniofacial dysmorphism, polydactyly Skeletomuscular: No muscular atrophy, deformity Neurological: see HP. Psychiatric: Denies drug use/abuse. Otherwise, not [id number] review of systems. PHYSICAL EXAMINATION: General appearance is in subacute distress. HEENT: Normocephalic and nontraumatic. Eyes, nose, ears, and throat are unremarkable. Neck is supple. No lymphadenopathy. No crepitus. Cardiovascular: S1, S2, regular rate and rhythm. Pulmonary: Clear to auscultation bilaterally. Abdomen: Bowel sounds are positive. Abdomen is soft, nontender, and nondistended. Extremities: No rash, lesions, or edema. No restriction of range of motion NEUROLOGICAL EXAMINATION: Awake. Oriented to time, place and person. PERRL. EOMI. CN: no focal findings. Muscle tone: mildly increased. Muscle strength: 4+ DTR: 2- Plantar reflex: Flexor response bilaterally Gait: not examined in bed. Sensory exam: no abnormal findings. No cerebellar signs elicited. Objective Objective Vital Signs Date Time Temp Pulse Resp B/P (MAP) Pulse Ox O2 Delivery O2 Flow Rate FiO2 04/28/19 15:09 97.8 72 16 139/68 (91) 93 Room Air 97.8 Vitals Signs Vitals VS - Last 72 Hours, by Label Date Time Temp Pulse Resp B/P (MAP) Pulse Ox O2 Delivery O2 Flow Rate FiO2 04/28/19 15:09 97.8 72 16 139/68 (91) 93 Room Air 97.8 04/28/19 12:28 68 144/78 04/28/19 11:54 97.4 68 16 144/78 (100) 97 Room Air 97.4 04/28/19 11:26 70 16 96 04/28/19 11:11 70 16 98 04/28/19 09:00 98.9 72 16 138/76 (96) 97 Room Air 98.9 Laboratory Laboratory Laboratory Tests Test 04/28/19 09:04 04/28/19 13:50 White Blood Count 4.0 x10^3/uL (4.0-11.0) Red Blood Count 3.81 x10^6/uL (3.50-5.40) Hemoglobin 12.1 g/dL (12.0-15.5) Hematocrit 35.7 % (36.0-47.0) Mean Corpuscular Volume 94 fL (79-100) Mean Corpuscular Hemoglobin 32 pg (25-35) Mean Corpuscular Hemoglobin Concent 34 g/dL (31-37) Red Cell Distribution Width 13.6 % (11.5-14.5) Platelet Count 196 x10^3/uL (140-400) Neutrophils (%) (Auto) 43 % (31-73) Lymphocytes (%) (Auto) 33 % (24-48) Monocytes (%) (Auto) 23 % (0-9) Eosinophils (%) (Auto) 1 % (0-3) Basophils (%) (Auto) 1 % (0-3) Neutrophils # (Auto) 1.7 x10^3/uL (1.8-7.7) Lymphocytes # (Auto) 1.3 x10^3/uL (1.0-4.8) Monocytes # (Auto) 0.9 x10^3/uL (0.0-1.1) Eosinophils # (Auto) 0.0 x10^3/uL (0.0-0.7) Basophils # (Auto) 0.0 x10^3/uL (0.0-0.2) Segmented Neutrophils % 56 % (35-66) Lymphocytes % 28 % (24-48) Monocytes % 16 % (0-10) Platelet Estimate Adequate (ADEQUATE) Large Platelets Present Sodium Level 129 mmol/L (136-145) Potassium Level 4.7 mmol/L (3.5-5.1) Chloride Level 94 mmol/L (98-107) Carbon Dioxide Level 24 mmol/L (21-32) Anion Gap 11 (6-14) Blood Urea Nitrogen 20 mg/dL (7-20) Creatinine 0.9 mg/dL (0.6-1.0) Estimated GFR (Cockcroft-Gault) 59.4 BUN/Creatinine Ratio 22 (6-20) Glucose Level 92 mg/dL (70-99) Calcium Level 9.1 mg/dL (8.5-10.1) Magnesium Level 1.9 mg/dL (1.8-2.4) Total Bilirubin 1.1 mg/dL (0.2-1.0) Aspartate Amino Transf (AST/SGOT) 19 U/L (15-37) Alanine Aminotransferase (ALT/SGPT) 16 U/L (14-59) Alkaline Phosphatase 170 U/L (46-116) Creatine Kinase 115 U/L (26-192) Troponin I Quantitative < 0.017 ng/mL (0.000-0.055) Total Protein 6.7 g/dL (6.4-8.2) Albumin 3.6 g/dL (3.4-5.0) Albumin/Globulin Ratio 1.2 (1.0-1.7) Urine Collection Type Unknown Urine Color Yellow Urine Clarity Clear Urine pH 6.5 Urine Specific [place] 1.010 Urine Protein Negative mg/dL (NEG-TRACE) Urine Glucose (UA) Negative mg/dL (NEG) Urine Ketones (Stick) Negative mg/dL (NEG) Urine Blood Negative (NEG) Urine Nitrite Negative (NEG) Urine Bilirubin Negative (NEG) Urine Urobilinogen Dipstick 0.2 mg/dL (0.2 mg/dL) Urine Leukocyte Esterase Trace (NEG) Urine RBC 1-2 /HPF (0-2) Urine WBC 1-4 /HPF (0-4) Urine Squamous Epithelial Cells Few /LPF Urine Bacteria 0 /HPF (0-FEW) Medication Medications Current Medications Acetaminophen (Tylenol) 650 mg PRN Q4HRS PRN GT TEMP OVER 100.4F OR MILD PAIN; Start 04/28/19 at 11:30 Al Hydroxide/Mg Hydroxide (Mylanta Plus Xs) 30 ml PRN DAILY PRN PO HEARTBURN / GAS; Start 04/28/19 at 11:30 Albuterol Sulfate (Ventolin Neb Soln) 2.5 mg PRN Q4HRS PRN NEB SHORTNESS OF BREATH; Start 04/28/19 at 11:30 Amlodipine Besylate (Norvasc) 5 mg DAILY PO Last administered on 04/28/19at 12:28; Start 04/28/19 at 12:00 Aspirin (Ecotrin) 325 mg DAILYWBKFT PO Last administered on 04/28/19at 12:27; Start 04/28/19 at 12:00 Atorvastatin Calcium (Lipitor) 20 mg QHS PO ; Start 04/28/19 at 21:00 Carbidopa/Levodopa (Sinemet 25/100) 1 tab Q4HRS PO Last administered on 04/28/19at 12:27; Start 04/28/19 at 12:00 Clonidine HCl (Catapres) 0.1 mg PRN Q6HRS PRN PO SBP>160 OR DBP>90; Start 04/28/19 at 11:30 Docusate Sodium (Colace) 100 mg PRN BID PRN PO CONSTIPATION; Start 04/28/19 at 11:30 Lactobacillus Rhamnosus (Culturelle) 1 cap BID PO Last administered on 04/28/19at 12:28; Start 04/28/19 at 12:00 Levothyroxine Sodium (Synthroid) 137 mcg DAILY PO Last administered on 04/28/19at 12:27; Start 04/28/19 at 12:00 Lorazepam (Ativan) 0.5 mg PRN Q4HRS PRN PO ANXIETY / AGITATION; Start 04/28/19 at 11:30 Ondansetron HCl (Zofran) 4 mg PRN Q4HRS PRN IV NAUSEA/VOMITING; Start 04/28/19 at 11:30 Sodium Monofluorophosphate (Fleet Adult) 133 ml PRN DAILY PRN [place] CONSTIPATION; Start 04/28/19 at 11:30 Sodium Chloride 500 ml @ 500 mls/hr 1X ONCE IV Last administered on 04/28/19at 10:46; Start 04/28/19 at 10:30; Stop 04/28/19 at 11:29; Status DC Sodium Chloride 1,000 ml @ 75 mls/hr [id number] IV Last administered on 04/28/19at 12:23; Start 04/28/19 at 12:00 Comment Review of Relevant I have reviewed the following items edilma (where applicable) has been applied. ALOK VILLEGAS MD Apr 28, 2019 17:28
[2019-04-28 19:44] VITALS: BP 114/66
--- NOTE | 2019-04-28 20:04 | RAD ---
PQRS Compliance statement: One or more of the following individualized dose reduction techniques were utilized for this examination: 1. Automated exposure control. 2. Adjustment of the mA and/or kV according to patient size. 3. Use of iterative reconstruction technique. Indication:Lower extremity weakness. Unable to walk. TECHNIQUE: CT of the cervical spine without IV contrast with multiplanar reformats. COMPARISON:None FINDINGS: Atlantoaxial joint interval is preserved with mild degenerative changes. No compression deformities. Facet joints are in normal anatomic alignment. Severe intervertebral disc space narrowing seen at multiple levels in the cervical spine especially from C5-T1 with endplate sclerosis and osteophyte formation. No acute fractures. C2-C3: Mild disc bulge flattening intrathecal sac. Severe left and mild right facet arthropathy. No neuroforamina narrowing. C3-C4: No significant disc bulge or herniation. Severe left and moderate right facet arthropathy. Severe bilateral neuroforamina narrowing. C4-C5: Mild circumferential disc bulge. Severe bilateral facet arthropathy. Severe bilateral neuroforamina narrowing. C5-C6: No significant disc bulge. Moderate bilateral facet arthropathy. Severe bilateral neuroforamina narrowing. C6-7: Mild circumferential disc bulge flattening intrathecal sac. Moderate bilateral facet arthropathy. Severe bilateral neuroforamina narrowing. C7-T1: Mild circumferential disc bulge. Bilateral moderate facet arthropathy. Severe bilateral neuroforamina narrowing. Moderate bilateral atherosclerotic plaque in the carotid bulbs. Otherwise, noncontrast appearance of the neck soft tissue is within normal limits. The computer opacity in the posterior right upper lobe measuring 7 mm. Nodular thickening of the posterior pleura in the right upper lobe. 6 mm groundglass opacity in the left lung apex. IMPRESSION: 1. Multilevel advanced degenerative disc disease with facet arthropathy causing severe neural foramina narrowing at multiple levels. 2. Multiple abnormality is in the visualized lung apices, nonspecific but malignant process not ruled out. Follow-up CT chest in 3 months recommended. Electronically signed by: Roel Whitt DO (04/28/2019 8:01 PM) [facility]
[2019-04-28] MEDS ORDERED: ATORVASTATIN CALCIUM 20 MG TABLET PO SCH (21:00)
[2019-04-28 23:41] VITALS: BP 161/73
--- NOTE | 2019-04-28 23:52 | NUR ---
Called Dr. García about pt being incontinent of urine and has ordered 24 hour urine collection, Dr. García ordered to place wolff catheter, pt refused, explained the importance but pt still refusing, talked to regarding pt's refusal via phone, just okayed and notified Dr. García.
--- NOTE | 2019-04-28 23:58 | NUR ---
Pt's bedside swallow test done, pt did not pass the test, notified Dr. Gaviria, ordered to hold all oral meds for now until tomorrow and see if pt is getting better. Will continue to monitor pt.
[2019-04-29] MEDS: IV NORMAL SALINE 1000ML BAG 1,000 ML IV SCH ×2 (01:20→14:40)
[2019-04-29 03:24] VITALS: BP 139/68
[2019-04-29] MEDS: CARBIDOPA/LEVODOPA 25/100MG TABLET PO SCH ×6 (04:00→20:00)
[2019-04-29 07:47] VITALS: BP 155/68
--- NOTE | 2019-04-29 07:57 | RAD ---
PQRS Compliance statement: One or more of the following individualized dose reduction techniques were utilized for this examination: 1. Automated exposure control. 2. Adjustment of the mA and/or kV according to patient size. 3. Use of iterative reconstruction technique. Indication:Lower extremity deep veins. Unable to walk. TECHNIQUE: CT lumbar spine without IV contrast with multiplanar reformats. COMPARISON: None FINDINGS: There are 5 lumbar type vertebral bodies. Status post posterior fusion at L4-S1 with grade 1 anterolisthesis of L4 over L5. No compression deformity. Multilevel severe intervertebral disc space narrowing with endplate irregularities and osteophyte formation. No acute fractures. L1-L2: Annular calcifications with mild disc bulge. Mild bilateral facet arthropathy. Severe bilateral neuroforamina narrowing. Mild spinal canal narrowing measuring 9 mm in AP dimension. L2-L3: Circumferential disc bulge flattening intrathecal sac. Moderate bilateral facet arthropathy. Calcified and thickened bilateral ligamentum flavum. Severe bilateral neuroforamina narrowing, right more than left. Mild spinal canal narrowing measuring 7 mm. L3-L4: Circumferential disc bulge flattening intrathecal sac. Moderate bilateral facet arthropathy. Severe left and moderate right neuroforamina narrowing. L4-L5: Limited evaluation of the spinal canal contents due to streak artifact from hardware. Severe bilateral neuroforamina narrowing. L5-S1: Significant calcification seen along the posterior aspect of the intervertebral disc space. Limited evaluation of canal contents due to streak artifact. Severe bilateral neuroforamina narrowing. Clear lung bases. Moderate atherosclerotic plaque is seen in the visualized abdominal aorta. IMPRESSION: 1. Multilevel advanced degenerative disc disease with associated facet arthropathy causing varying amount of neuroforaminal narrowing and spinal canal narrowing as described above. 2. Status post posterior fusion at L4-S1. Electronically signed by: Roel Whitt DO (04/29/2019 7:53 AM) [facility]
[2019-04-29] MEDS: ASPIRIN ENTERIC COATED 325 MG TABLET.DR. PO SCH (08:00)
[2019-04-29] MEDS ORDERED: HYDROmorphone 2 MG/ML VIAL IV ONE (08:45)
[2019-04-29 08:52] LABS: BASO % 0 % (0-3); EOS % 0 % (0-3); HEMATOCRIT 34.8 % (36.0-47.0); HEMOGLOBIN 11.9 g/dL (12.0-15.5); LYMPH # 0.7 x10^3/uL (1.0-4.8); LYMPH % 12 % (24-48); MEAN CORPUSCULAR HEMOGLOBIN 32 pg (25-35); MEAN CORPUSCULAR HGB CONC 34 g/dL (31-37); MEAN CORPUSCULAR VOLUME 94 fL (79-100); MONO # 0.7 x10^3/uL (0.0-1.1); MONO % 13 % (0-9); NEUT # 4.3 x10^3/uL (1.8-7.7); NEUT % 75 % (31-73); PLATELET COUNT 193 x10^3/uL (140-400); RED CELL DISTRIBUTION WIDTH 13.8 % (11.5-14.5); WHITE BLOOD COUNT 5.7 x10^3/uL (4.0-11.0)
[2019-04-29 09:03] LABS: ALBUMIN 3.1 g/dL (3.4-5.0); CALCIUM 8.4 mg/dL (8.5-10.1); CREATININE 0.7 mg/dL (0.6-1.0); GFR 79.3; POTASSIUM 4.1 mmol/L (3.5-5.1); TOTAL BILIRUBIN 1.2 mg/dL (0.2-1.0); TOTAL PROTEIN 6.3 g/dL (6.4-8.2)
[2019-04-29] MEDS: ENOXAPARIN 30 MG/0.3 ML SYRINGE. SQ SCH (10:00)
[2019-04-29 11:23] VITALS: BP 111/64
--- NOTE | 2019-04-29 13:32 | PDOC ---
PROGRESS NOTES Chief Complaint Chief Complaint Bradycardia as low as 40s Hypothyroidism on Synthroid with TSH 10 Geriatric Fall risk Hyponatremia POA, better Hypotension POA, resolved Dysphagia DNR History of Present Illness History of Present Illness called By RN, bradycardic, asleep or at least in bed with no symptoms- HR as low as 42bpm at bedside-equally elderly verifies DNR CODE STATUS of pt Sodium much better than on admission -s /p NS Some swallow issues today as per RN Looking at home meds supposed to be on Synthroid and other meds Hypotension resolved-colleague has ordered 24-hour urine but patient is continent and does not want a Sanchez catheter She is confused to place and time but oriented to self is agreeable to SNU if recommended by PT Plan DNR Start Synthroid IV dose half dose since IV [employer] eval, nothing by mouth until then Cortisol in the a.m. was originally ordered No need for 24-hour urine Home meds I have reconciled DNR Discussed with RN at bedside Have Patient ambulate with physical therapy and watch for appropriate chronotropic response upon ambulation keep on telemetry SW- SNU screen Vitals Vitals Vital Signs Date Time Temp Pulse Resp B/P (MAP) Pulse Ox O2 Delivery O2 Flow Rate FiO2 04/29/19 11:23 98.9 70 18 111/64 (80) 93 Room Air 98.9 Physical Exam General: Cooperative, No acute distress, mild distress Heart: Other (bradycardiac 56) Lungs: Clear, Other Abdomen: Normal bowel sounds, Soft, No tenderness, No masses Extremities: No clubbing, No cyanosis, No edema, No tenderness/swelling Skin: No rashes, No breakdown, No significant lesion Labs LABS Laboratory Tests Test 04/28/19 13:50 04/29/19 08:20 Urine Collection Type Unknown Urine Color Yellow Urine Clarity Clear Urine pH 6.5 Urine Specific [place] 1.010 Urine Protein Negative mg/dL (NEG-TRACE) Urine Glucose (UA) Negative mg/dL (NEG) Urine Ketones (Stick) Negative mg/dL (NEG) Urine Blood Negative (NEG) Urine Nitrite Negative (NEG) Urine Bilirubin Negative (NEG) Urine Urobilinogen Dipstick 0.2 mg/dL (0.2 mg/dL) Urine Leukocyte Esterase Trace (NEG) Urine RBC 1-2 /HPF (0-2) Urine WBC 1-4 /HPF (0-4) Urine Squamous Epithelial Cells Few /LPF Urine Bacteria 0 /HPF (0-FEW) Urine Random Sodium 67 mmol/L (Not Estab.) White Blood Count 5.7 x10^3/uL (4.0-11.0) Red Blood Count 3.70 x10^6/uL (3.50-5.40) Hemoglobin 11.9 g/dL (12.0-15.5) Hematocrit 34.8 % (36.0-47.0) Mean Corpuscular Volume 94 fL (79-100) Mean Corpuscular Hemoglobin 32 pg (25-35) Mean Corpuscular Hemoglobin Concent 34 g/dL (31-37) Red Cell Distribution Width 13.8 % (11.5-14.5) Platelet Count 193 x10^3/uL (140-400) Neutrophils (%) (Auto) 75 % (31-73) Lymphocytes (%) (Auto) 12 % (24-48) Monocytes (%) (Auto) 13 % (0-9) Eosinophils (%) (Auto) 0 % (0-3) Basophils (%) (Auto) 0 % (0-3) Neutrophils # (Auto) 4.3 x10^3/uL (1.8-7.7) Lymphocytes # (Auto) 0.7 x10^3/uL (1.0-4.8) Monocytes # (Auto) 0.7 x10^3/uL (0.0-1.1) Eosinophils # (Auto) 0.0 x10^3/uL (0.0-0.7) Basophils # (Auto) 0.0 x10^3/uL (0.0-0.2) Sodium Level 132 mmol/L (136-145) Potassium Level 4.1 mmol/L (3.5-5.1) Chloride Level 97 mmol/L (98-107) Carbon Dioxide Level 24 mmol/L (21-32) Anion Gap 11 (6-14) Blood Urea Nitrogen 13 mg/dL (7-20) Creatinine 0.7 mg/dL (0.6-1.0) Estimated GFR (Cockcroft-Gault) 79.3 BUN/Creatinine Ratio 19 (6-20) Glucose Level 85 mg/dL (70-99) Calcium Level 8.4 mg/dL (8.5-10.1) Total Bilirubin 1.2 mg/dL (0.2-1.0) Aspartate Amino Transf (AST/SGOT) 17 U/L (15-37) Alanine Aminotransferase (ALT/SGPT) 9 U/L (14-59) Alkaline Phosphatase 157 U/L (46-116) Total Protein 6.3 g/dL (6.4-8.2) Albumin 3.1 g/dL (3.4-5.0) Albumin/Globulin Ratio 1.0 (1.0-1.7) Thyroid Stimulating Hormone (TSH) 10.852 uIU/mL (0.358-3.74) Review of Systems Review of Systems limited ROS, some dementia, otherwise she denies 14 point reviewed Assessment and Plan Assessmemt and Plan Problems Medical Problems: (1) Hyponatremia Status: Acute (2) Weakness generalized Status: Acute Comment Review of Relevant I have reviewed the following items edilma (where applicable) has been applied. Labs Laboratory Tests Test 04/28/19 09:04 04/28/19 13:50 04/29/19 08:20 White Blood Count 4.0 x10^3/uL (4.0-11.0) 5.7 x10^3/uL (4.0-11.0) Red Blood Count 3.81 x10^6/uL (3.50-5.40) 3.70 x10^6/uL (3.50-5.40) Hemoglobin 12.1 g/dL (12.0-15.5) 11.9 g/dL (12.0-15.5) Hematocrit 35.7 % (36.0-47.0) 34.8 % (36.0-47.0) Mean Corpuscular Volume 94 fL (79-100) 94 fL (79-100) Mean Corpuscular Hemoglobin 32 pg (25-35) 32 pg (25-35) Mean Corpuscular Hemoglobin Concent 34 g/dL (31-37) 34 g/dL (31-37) Red Cell Distribution Width 13.6 % (11.5-14.5) 13.8 % (11.5-14.5) Platelet Count 196 x10^3/uL (140-400) 193 x10^3/uL (140-400) Neutrophils (%) (Auto) 43 % (31-73) 75 % (31-73) Lymphocytes (%) (Auto) 33 % (24-48) 12 % (24-48) Monocytes (%) (Auto) 23 % (0-9) 13 % (0-9) Eosinophils (%) (Auto) 1 % (0-3) 0 % (0-3) Basophils (%) (Auto) 1 % (0-3) 0 % (0-3) Neutrophils # (Auto) 1.7 x10^3/uL (1.8-7.7) 4.3 x10^3/uL (1.8-7.7) Lymphocytes # (Auto) 1.3 x10^3/uL (1.0-4.8) 0.7 x10^3/uL (1.0-4.8) Monocytes # (Auto) 0.9 x10^3/uL (0.0-1.1) 0.7 x10^3/uL (0.0-1.1) Eosinophils # (Auto) 0.0 x10^3/uL (0.0-0.7) 0.0 x10^3/uL (0.0-0.7) Basophils # (Auto) 0.0 x10^3/uL (0.0-0.2) 0.0 x10^3/uL (0.0-0.2) Segmented Neutrophils % 56 % (35-66) Lymphocytes % 28 % (24-48) Monocytes % 16 % (0-10) Platelet Estimate Adequate (ADEQUATE) Large Platelets Present Sodium Level 129 mmol/L (136-145) 132 mmol/L (136-145) Potassium Level 4.7 mmol/L (3.5-5.1) 4.1 mmol/L (3.5-5.1) Chloride Level 94 mmol/L (98-107) 97 mmol/L (98-107) Carbon Dioxide Level 24 mmol/L (21-32) 24 mmol/L (21-32) Anion Gap 11 (6-14) 11 (6-14) Blood Urea Nitrogen 20 mg/dL (7-20) 13 mg/dL (7-20) Creatinine 0.9 mg/dL (0.6-1.0) 0.7 mg/dL (0.6-1.0) Estimated GFR (Cockcroft-Gault) 59.4 79.3 BUN/Creatinine Ratio 22 (6-20) 19 (6-20) Glucose Level 92 mg/dL (70-99) 85 mg/dL (70-99) Calcium Level 9.1 mg/dL (8.5-10.1) 8.4 mg/dL (8.5-10.1) Magnesium Level 1.9 mg/dL (1.8-2.4) Total Bilirubin 1.1 mg/dL (0.2-1.0) 1.2 mg/dL (0.2-1.0) Aspartate Amino Transf (AST/SGOT) 19 U/L (15-37) 17 U/L (15-37) Alanine Aminotransferase (ALT/SGPT) 16 U/L (14-59) 9 U/L (14-59) Alkaline Phosphatase 170 U/L (46-116) 157 U/L (46-116) Creatine Kinase 115 U/L (26-192) Troponin I Quantitative < 0.017 ng/mL (0.000-0.055) Total Protein 6.7 g/dL (6.4-8.2) 6.3 g/dL (6.4-8.2) Albumin 3.6 g/dL (3.4-5.0) 3.1 g/dL (3.4-5.0) Albumin/Globulin Ratio 1.2 (1.0-1.7) 1.0 (1.0-1.7) Urine Collection Type Unknown Urine Color Yellow Urine Clarity Clear Urine pH 6.5 Urine Specific [place] 1.010 Urine Protein Negative mg/dL (NEG-TRACE) Urine Glucose (UA) Negative mg/dL (NEG) Urine Ketones (Stick) Negative mg/dL (NEG) Urine Blood Negative (NEG) Urine Nitrite Negative (NEG) Urine Bilirubin Negative (NEG) Urine Urobilinogen Dipstick 0.2 mg/dL (0.2 mg/dL) Urine Leukocyte Esterase Trace (NEG) Urine RBC 1-2 /HPF (0-2) Urine WBC 1-4 /HPF (0-4) Urine Squamous Epithelial Cells Few /LPF Urine Bacteria 0 /HPF (0-FEW) Urine Random Sodium 67 mmol/L (Not Estab.) Thyroid Stimulating Hormone (TSH) 10.852 uIU/mL (0.358-3.74) Laboratory Tests Test 04/28/19 13:50 04/29/19 08:20 Urine Collection Type Unknown Urine Color Yellow Urine Clarity Clear Urine pH 6.5 Urine Specific [place] 1.010 Urine Protein Negative mg/dL (NEG-TRACE) Urine Glucose (UA) Negative mg/dL (NEG) Urine Ketones (Stick) Negative mg/dL (NEG) Urine Blood Negative (NEG) Urine Nitrite Negative (NEG) Urine Bilirubin Negative (NEG) Urine Urobilinogen Dipstick 0.2 mg/dL (0.2 mg/dL) Urine Leukocyte Esterase Trace (NEG) Urine RBC 1-2 /HPF (0-2) Urine WBC 1-4 /HPF (0-4) Urine Squamous Epithelial Cells Few /LPF Urine Bacteria 0 /HPF (0-FEW) Urine Random Sodium 67 mmol/L (Not Estab.) White Blood Count 5.7 x10^3/uL (4.0-11.0) Red Blood Count 3.70 x10^6/uL (3.50-5.40) Hemoglobin 11.9 g/dL (12.0-15.5) Hematocrit 34.8 % (36.0-47.0) Mean Corpuscular Volume 94 fL (79-100) Mean Corpuscular Hemoglobin 32 pg (25-35) Mean Corpuscular Hemoglobin Concent 34 g/dL (31-37) Red Cell Distribution Width 13.8 % (11.5-14.5) Platelet Count 193 x10^3/uL (140-400) Neutrophils (%) (Auto) 75 % (31-73) Lymphocytes (%) (Auto) 12 % (24-48) Monocytes (%) (Auto) 13 % (0-9) Eosinophils (%) (Auto) 0 % (0-3) Basophils (%) (Auto) 0 % (0-3) Neutrophils # (Auto) 4.3 x10^3/uL (1.8-7.7) Lymphocytes # (Auto) 0.7 x10^3/uL (1.0-4.8) Monocytes # (Auto) 0.7 x10^3/uL (0.0-1.1) Eosinophils # (Auto) 0.0 x10^3/uL (0.0-0.7) Basophils # (Auto) 0.0 x10^3/uL (0.0-0.2) Sodium Level 132 mmol/L (136-145) Potassium Level 4.1 mmol/L (3.5-5.1) Chloride Level 97 mmol/L (98-107) Carbon Dioxide Level 24 mmol/L (21-32) Anion Gap 11 (6-14) Blood Urea Nitrogen 13 mg/dL (7-20) Creatinine 0.7 mg/dL (0.6-1.0) Estimated GFR (Cockcroft-Gault) 79.3 BUN/Creatinine Ratio 19 (6-20) Glucose Level 85 mg/dL (70-99) Calcium Level 8.4 mg/dL (8.5-10.1) Total Bilirubin 1.2 mg/dL (0.2-1.0) Aspartate Amino Transf (AST/SGOT) 17 U/L (15-37) Alanine Aminotransferase (ALT/SGPT) 9 U/L (14-59) Alkaline Phosphatase 157 U/L (46-116) Total Protein 6.3 g/dL (6.4-8.2) Albumin 3.1 g/dL (3.4-5.0) Albumin/Globulin Ratio 1.0 (1.0-1.7) Thyroid Stimulating Hormone (TSH) 10.852 uIU/mL (0.358-3.74) Medications Current Medications Sodium Chloride 500 ml @ 500 mls/hr 1X ONCE IV Last administered on 04/28/19 10:46; Start 04/28/19 at 10:30; Stop 04/28/19 at 11:29; Status DC Amlodipine Besylate (Norvasc) 5 mg DAILY PO Last administered on 04/28/19at 12:28; Start 04/28/19 at 12:00; Stop 04/29/19 at 09:18; Status DC Carbidopa/Levodopa (Sinemet 25/100) 1 tab Q4HRS PO Last administered on 04/28/19at 17:26; Start 04/28/19 at 12:00 Lactobacillus Rhamnosus (Culturelle) 1 cap BID PO Last administered on 04/28/19at 12:28; Start 04/28/19 at 12:00; Stop 04/29/19 at 09:18; Status DC Levothyroxine Sodium (Synthroid) 137 mcg DAILY PO Last administered on 7/20/19at 12:27; Start 04/28/19 at 12:00; Stop 04/29/19 at 09:17; Status DC Aspirin (Ecotrin) 325 mg [id number] PO Last administered on 04/28/19at 12:27; S tart 04/28/19 at 12:00; Stop 04/29/19 at 09:18; Status DC Atorvastatin Calcium (Lipitor) 20 mg QHS PO ; Start 04/28/19 at 21:00; Stop 04/29/19 at 09:18; Status DC Ondansetron HCl (Zofran) 4 mg PRN Q4HRS PRN IV NAUSEA/VOMITING; Start 04/28/19 at 11:30 Acetaminophen (Tylenol) 650 mg PRN Q4HRS PRN GT TEMP OVER 100.4F OR MILD PAIN; Start 04/28/19 at 11:30 Al Hydroxide/Mg Hydroxide (Mylanta Plus Xs) 30 ml PRN DAILY PRN PO HEARTBURN / GAS; Start 04/28/19 at 11:30 Clonidine HCl (Catapres) 0.1 mg PRN Q6HRS PRN PO SBP>160 OR DBP>90; Start 04/28/19 at 11:30 Sodium Monofluorophosphate (Fleet Adult) 133 ml PRN DAILY PRN [place] CONSTIPATION; Start 04/28/19 at 11:30 Docusate Sodium (Colace) 100 mg PRN BID PRN PO CONSTIPATION; Start 04/28/19 at 11:30 Albuterol Sulfate (Ventolin Neb Soln) 2.5 mg PRN Q4HRS PRN NEB SHORTNESS OF BREATH; Start 04/28/19 at 11:30 Lorazepam (Ativan) 0.5 mg PRN Q4HRS PRN PO ANXIETY / AGITATION; Start 04/28/19 at 11:30 Sodium Chloride 1,000 ml @ 75 mls/hr [id number] IV Last administered on 04/29/19at 01:20; Start 04/28/19 at 12:00 Hydromorphone HCl (Dilaudid) 0.5 mg 1X ONCE IV Last administered on 04/29/19at 08:46; Start 04/29/19 at 08:45; Stop 04/29/19 at 08:46; Status DC Levothyroxine Sodium 68.5 mcg/ Sodium Chloride 5 ml @ 100 mls/hr DAILY IVP ; Start 04/30/19 at 09:00 Famotidine (Pepcid Vial) 20 mg QHS IVP ; Start 04/29/19 at 21:00 Enoxaparin Sodium (Lovenox 30mg Syringe) 30 mg Q24H SQ ; Start 04/29/19 at 10:00 Lorazepam (Ativan Inj) 1 mg PRN Q4HRS PRN IV ANXIETY / AGITATION; Start 04/29/19 at 09:30 Active Scripts Active Culturelle (Lactobacillus Rhamnosus Gg) 1 Each Cap.sprink 1 Cap PO BID 30 Days Cipro (Ciprofloxacin Hcl) 250 Mg Tablet 250 Mg PO DAILY 10 Days [Hydrocodone/Acetaminophen] 1 TAB Tablet 1 Tab PO PRN Q6HRS PRN Reported Amlodipine Besylate 5 Mg Tablet 5 Mg PO DAILY Sinemet 25-100 Mg Tablet (Carbidopa/Levodopa) 1 Each Tablet 1 Tab PO Q4HRS Levothyroxine Sodium 137 Mcg Tablet 1 Tab PO DAILY Vitals/I & O Vital Sign - Last 24 Hours 04/28/19 04/28/19 04/28/19 04/28/19 15:09 19:44 19:45 20:00 Temp 97.8 98.0 97.8 98.0 Pulse 72 74 Resp 16 18 B/P (MAP) 139/68 (91) 114/66 (82) Pulse Ox 93 92 94 O2 Delivery Room Air Room Air Room Air Room Air 04/28/19 04/29/19 04/29/19 04/29/19 23:41 03:24 07:47 08:00 Temp 98.3 98.2 98.6 98.3 98.2 98.6 Pulse 67 67 69 Resp 18 18 16 B/P (MAP) 161/73 (102) 139/68 (91) 155/68 (97) Pulse Ox 96 95 95 O2 Delivery Room Air Room Air Room Air Room Air 04/29/19 04/29/19 08:46 11:23 Temp 98.9 98.9 Pulse 70 Resp 18 B/P (MAP) 111/64 (80) Pulse Ox 95 93 O2 Delivery Room Air Room Air Intake and Output 0 04/28/19 04/28/19 04/29/19 14:59 22:59 06:59 Intake Total 500 ml 0 ml 0 ml Balance 500 ml 0 ml 0 ml WEI BURNETTE MD Apr 29, 2019 13:32
[2019-04-29] MEDS: NORMAL SALINE IVP SCH (13:46)
[2019-04-29] MEDS: LEVOTHYROXINE SODIUM IVP SCH (13:46)
--- NOTE | 2019-04-29 15:09 | NUR ---
pt has been NPO due to a failed Wilkinson swallow screen. Speech Therapy came by to do their tests and the pt repeated that she was done with this, did not want anyone to touch her and that we were to go away. I have not been able to give any meds due to them being PO. the pt now refuses to speak, or open her eyes. She responds to sternal rub by grimacing and some arm movement. she will not open her eyes but there is movement behind her lids. Dr Nava spoke with daughter over the phone. Toby Cheatham RN
[2019-04-29 15:32] VITALS: BP 139/73
--- NOTE | 2019-04-29 18:18 | PDOC ---
PROGRESS NOTES Assessment Assessment Metabolic encephalopathy. Generalized weakness LE > UE. Gait disorder. PD. 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 Aortic atherosclerosis. Cardiomegaly. Hypothyroidism, TSH 10.85 Pulmonary lesions, malignant? 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 Depression. Psychiatric problems, catatolic. No evidence of acute large CVA this time. RECOMMENDATIONS/PLAN: Brain MRI w/o contrast. Continue ASA 325 mg daily. Increased Sinemet 25/100 mg to q4h. Treat hypothyroidism per medical team. Treat the underlying medical diseases. Chest CT. OT/OT. Discussed with her at bedside again on 04/29/19. HISTORY OF THE PRESENT ILLNESS: 88-y-old female patient with above medical diseases developed symptoms MS changes and generalized weakness LE > UE and gait difficulties. She stated that her LE weakness more obvious and she might not be able to recover to her baseline of walking with a walker. She was reportedly had MS changes as well. No cranial nerve symptoms. LE are not involved. She does not take ASA or any antiplatelet agent. 04/29/19: She becomes catatonic, refused to open eyes, refuse movements. PAST MEDICAL HISTORY: Refer to above. PAST SURGERY HISTORY: Tonsillectomy Spine fusion. ALLERGY: Unknown MEDICATIONS: Refer to MAR. FAMILY HISTORY: Non contributory. SOCIAL HISTORY: Denies smoking, drinking, and illicit drug use. REVIEW OF SYSTEMS: Constitutional: No malnutrition, weight loss, night sweats, cachexia Head: No traumatic brain or head injury. Skin: No edema, or rash. Ear: No infection, tinnitus. Eyes: No vision loss, color blindness Nose: No bleeding or purulent discharges. Neck: No injury, lymph note enlargement Breast: No history of cancer, masses, discharges. Cardiac: Cardiomegaly, HTN, HLD. Pulmonary: No hemoptysis, dyspnea GI: No melena, hematochezia Urinary/genital: UTI. Endocrinologic: No symptoms of gigantism, dwarf, hyperphasia, cousin face, craniofacial dysmorphism, polydactyly Skeletomuscular: No muscular atrophy, deformity Neurological: see HP. Psychiatric: Denies drug use/abuse. Otherwise, not [id number] review of systems. PHYSICAL EXAMINATION: General appearance is in subacute distress. HEENT: Normocephalic and nontraumatic. Eyes, nose, ears, and throat are unremarkable. Neck is supple. No lymphadenopathy. No crepitus. Cardiovascular: S1, S2, regular rate and rhythm. Pulmonary: Clear to auscultation bilaterally. Abdomen: Bowel sounds are positive. Abdomen is soft, nontender, and nondistended. Extremities: No rash, lesions, or edema. No restriction of range of motion NEUROLOGICAL EXAMINATION: Awake. In catatonic status. Refuses to open eyes. Not talk. PERRL. EOMI not elicited due to not follow commands. CN: no focal findings. Muscle tone: mildly increased. Muscle strength: 4+ DTR: 2- Plantar reflex: Flexor response bilaterally Gait: not examined in bed. Sensory exam: no abnormal findings. No cerebellar signs elicited. Objective Objective Vital Signs Date Time Temp Pulse Resp B/P (MAP) Pulse Ox O2 Delivery O2 Flow Rate FiO2 04/29/19 15:32 98.3 70 16 139/73 (95) 93 Room Air 98.3 Intake and Output 04/29/19 07:00 Intake Total 500 ml Balance 500 ml Intake Oral 0 ml IV Total 500 ml # Voids 3 # Bowel Movements 1 Vitals Signs Vitals VS - Last 72 Hours, by Label Date Time Temp Pulse Resp B/P (MAP) Pulse Ox O2 Delivery O2 Flow Rate FiO2 04/29/19 15:32 98.3 70 16 139/73 (95) 93 Room Air 98.3 04/29/19 11:23 98.9 70 18 111/64 (80) 93 Room Air 98.9 04/29/19 08:46 95 Room Air 04/29/19 08:00 Room Air 04/29/19 07:47 98.6 69 16 155/68 (97) 95 Room Air 98.6 04/29/19 03:24 98.2 67 18 139/68 (91) 95 Room Air 98.2 04/28/19 23:41 98.3 67 18 161/73 (102) 96 Room Air 98.3 04/28/19 20:00 Room Air 04/28/19 19:45 94 Room Air 04/28/19 19:44 98.0 74 18 114/66 (82) 92 Room Air 98.0 04/28/19 15:09 97.8 72 16 139/68 (91) 93 Room Air 97.8 04/28/19 12:28 68 144/78 04/28/19 11:54 97.4 68 16 144/78 (100) 97 Room Air 97.4 04/28/19 11:26 70 16 96 04/28/19 11:11 70 16 98 04/28/19 09:00 98.9 72 16 138/76 (96) 97 Room Air 98.9 Laboratory Laboratory Laboratory Tests Test 04/29/19 08:20 White Blood Count 5.7 x10^3/uL (4.0-11.0) Red Blood Count 3.70 x10^6/uL (3.50-5.40) Hemoglobin 11.9 g/dL (12.0-15.5) Hematocrit 34.8 % (36.0-47.0) Mean Corpuscular Volume 94 fL (79-100) Mean Corpuscular Hemoglobin 32 pg (25-35) Mean Corpuscular Hemoglobin Concent 34 g/dL (31-37) Red Cell Distribution Width 13.8 % (11.5-14.5) Platelet Count 193 x10^3/uL (140-400) Neutrophils (%) (Auto) 75 % (31-73) Lymphocytes (%) (Auto) 12 % (24-48) Monocytes (%) (Auto) 13 % (0-9) Eosinophils (%) (Auto) 0 % (0-3) Basophils (%) (Auto) 0 % (0-3) Neutrophils # (Auto) 4.3 x10^3/uL (1.8-7.7) Lymphocytes # (Auto) 0.7 x10^3/uL (1.0-4.8) Monocytes # (Auto) 0.7 x10^3/uL (0.0-1.1) Eosinophils # (Auto) 0.0 x10^3/uL (0.0-0.7) Basophils # (Auto) 0.0 x10^3/uL (0.0-0.2) Sodium Level 132 mmol/L (136-145) Potassium Level 4.1 mmol/L (3.5-5.1) Chloride Level 97 mmol/L (98-107) Carbon Dioxide Level 24 mmol/L (21-32) Anion Gap 11 (6-14) Blood Urea Nitrogen 13 mg/dL (7-20) Creatinine 0.7 mg/dL (0.6-1.0) Estimated GFR (Cockcroft-Gault) 79.3 BUN/Creatinine Ratio 19 (6-20) Glucose Level 85 mg/dL (70-99) Calcium Level 8.4 mg/dL (8.5-10.1) Total Bilirubin 1.2 mg/dL (0.2-1.0) Aspartate Amino Transf (AST/SGOT) 17 U/L (15-37) Alanine Aminotransferase (ALT/SGPT) 9 U/L (14-59) Alkaline Phosphatase 157 U/L (46-116) Total Protein 6.3 g/dL (6.4-8.2) Albumin 3.1 g/dL (3.4-5.0) Albumin/Globulin Ratio 1.0 (1.0-1.7) Thyroid Stimulating Hormone (TSH) 10.852 uIU/mL (0.358-3.74) Medication Medications Current Medications Atorvastatin Calcium (Lipitor) 20 mg QHS PO ; Start 04/28/19 at 21:00; Stop 04/29/19 at 09:18; Status DC Enoxaparin Sodium (Lovenox 30mg Syringe) 30 mg Q24H SQ Last administered on 04/29/19at 10:00; Start 04/29/19 at 10:00 Famotidine (Pepcid Vial) 20 mg QHS IVP ; Start 04/29/19 at 21:00 Hydromorphone HCl (Dilaudid) 0.5 mg 1X ONCE IV Last administered on 04/29/19at 08:46; Start 04/29/19 at 08:45; Stop 04/29/19 at 08:46; Status DC Levothyroxine Sodium 68.5 mcg/ Sodium Chloride 5 ml @ 100 mls/hr DAILY IVP Last administered on 04/29/19at 13:46; Start 04/29/19 at 13:45 Levothyroxine Sodium 68.5 mcg/ Sodium Chloride 5 ml @ 100 mls/hr DAILY IVP ; Start 04/30/19 at 09:00; Stop 04/30/19 at 09:00; Status DC Levothyroxine Sodium 68.5 mcg/ Sodium Chloride 5 ml @ 100 mls/hr DAILY IVP ; Start 04/30/19 at 09:00; Stop 04/30/19 at 09:00; Status DC Lorazepam (Ativan Inj) 1 mg PRN Q4HRS PRN IV ANXIETY / AGITATION; Start 04/29/19 at 09:30 Comment Review of Relevant I have reviewed the following items edilma (where applicable) has been applied. ALOK VILLEGAS MD Apr 29, 2019 18:18
[2019-04-29 19:15] VITALS: BP 175/91
[2019-04-29] MEDS: FAMOTIDINE 20 MG/2 ML VIAL IVP SCH (20:58)
[2019-04-29 23:15] VITALS: BP 158/73
[2019-04-30 03:40] VITALS: BP 150/69
[2019-04-30] MEDS: IV NORMAL SALINE 1000ML BAG 1,000 ML IV SCH (04:00)
[2019-04-30] MEDS: CARBIDOPA/LEVODOPA 25/100MG TABLET PO SCH ×6 (04:00→21:11)
[2019-04-30 07:00] VITALS: BP 147/77
[2019-04-30] MEDS: AMINO AC 3%/ELECTROLYTE/GLYCER 1,000 ML IV SCH (08:18)
[2019-04-30] MEDS: NORMAL SALINE IVP SCH (08:19)
[2019-04-30] MEDS: LEVOTHYROXINE SODIUM IVP SCH (08:19)
[2019-04-30] MEDS: ENOXAPARIN 30 MG/0.3 ML SYRINGE. SQ SCH (08:19)
[2019-04-30] MEDS ORDERED: NORMAL SALINE IVP SCH ×4 (09:00)
[2019-04-30] MEDS ORDERED: LEVOTHYROXINE SODIUM IVP SCH ×4 (09:00)
--- NOTE | 2019-04-30 09:14 | RAD ---
EXAM: CT Chest without IV contrast CLINICAL HISTORY: History of multiple lung lesions, evaluate stability, possible malignancy. COMPARISON: CT chest PE protocol 04/21/2016 TECHNIQUE: CT of the chest without intravenous contrast. Axial, coronal and sagittal reformatted images were generated. ---PQRS compliance statement - One or more of the following individualized dose reduction techniques were utilized for this study: 1. Automated exposure control 2. Adjustment of the mA and/or kV according to patient size 3. Use of iterative reconstruction technique--- FINDINGS: Lack of intravenous contrast limits evaluation of solid organs, vasculature, and lymph nodes. Chest: There is a moderate pericardial effusion which is essentially unchanged. Coronary artery and aortic root calcifications are seen. Atherosclerotic calcifications of the aorta are seen. Ectasia of the ascending aorta. No mediastinal or hilar lymphadenopathy by size criteria. A subcarinal lymph node measures 8 mm in short axis. No axillary lymphadenopathy. Trace bilateral pleural effusions. A 4 mm lung nodule along the major fissure previously measured 5 mm. And 8 x 6 mm right upper lobe lung nodule previously measured 7 x 3 mm. A 5 mm peripheral right upper lobe pleural-based lung nodule is seen. Bandlike opacities within the middle lobe likely scarring/atelectasis. Visualized Upper abdomen: Upper abdomen is grossly unremarkable. Bones: Acute-subacute posterior right fifth-sixth, ninth rib fractures are seen. IMPRESSION: 1. Multiple bilateral lung nodules are seen. The right upper lobe nodule has mildly increased in size, measuring in average approximately 7 mm in size. Recommend follow-up CT in 3 months. 2. Multiple acute to subacute right rib fractures. Electronically signed by: Van Menjivar MD (04/30/2019 9:11 AM) [facility]
--- NOTE | 2019-04-30 10:39 | NUR ---
SW reviewed pt's medical chart and evaluated for potential dc needs. Pt is an [place] resident at [facility] with her spouse and was admitted for metabolic encephalopathy. Pt is on room air, PT recommends home with assistance, and pt refused to work with SP. Per , pt would like information on hospice care. SW will meet with pt to determine if she is agreeable to meet with a hospice agency for informational purposes.
--- NOTE | 2019-04-30 10:45 | RAD ---
BRAIN W/O CONTRAST History: Mental status changes. Weakness. Technique: Multiplanar, multi sequential MR imaging was performed of the brain without contrast. Comparison: Head CT April 28, 2019. Brain MRI January 07, 2016 Findings: No acute infarct. No intracranial hemorrhage. No mass effect. No hydrocephalus. Small bilateral cerebellar infarcts. Small chronic left medial thalamic infarct. Chronic left occipital lobe infarct. Moderate brain parenchymal volume loss. Moderate focal and confluent foci of T2/FLAIR hyperintensity within the hemispheric white matter, most often due to chronic microvascular ischemia. Imaged orbits are unremarkable. Mild bilateral maxillary sinus mucosal thickening. Mastoid air cells are clear. Impression: 1. No acute intracranial abnormality. 2. Chronic left occipital infarct. 3. Chronic left medial thalamic and small bilateral cerebellar lacunar infarcts. 4. Moderate brain parenchymal volume loss and sequela of chronic microvascular ischemia. Electronically signed by: Harley Root DO (04/30/2019 10:42 AM) [id number]
--- NOTE | 2019-04-30 10:54 | PDOC ---
PROGRESS NOTES Chief Complaint Chief Complaint Bradycardia as low as 20s Hypothyroidism on Synthroid with TSH 10 Geriatric Fall risk Hyponatremia POA, better Hypotension POA, resolved Dysphagia DNR HOSPICE History of Present Illness History of Present Illness bradycardiac as low as 20s, asymptomatic Discussed with Dtr at bedside and . We talked about hospice-open to it Patient and does not want to be separate hence skilled with hospice seems not to be attractive to them Likely home with hospice Patient will try to work with [facility] today, she would like to eat We also did discuss pleasure feeding if she still fails swallow She does not want a [place] Plan DNR Discussed with clinical social work aide, home hospice screen [facility] intermittent eval today Daughter had some concerns about seizures, (no recurrence since admission), had some concerns asking me about the status of Parkinson's dementia and I told her it is severe Neurology likewise on board DC telemetry, okay to transfer out of tele if we need tele bed After heavy discussion we decided not to pursue the w/up of her bradycardia Significant time in the room discussing hospice, not pursuing active medical intervention-30 minutes at least the daughter and Vitals Vitals Vital Signs Date Time Temp Pulse Resp B/P (MAP) Pulse Ox O2 Delivery O2 Flow Rate FiO2 04/30/19 07:00 98.4 83 24 147/77 (100) 93 Room Air 98.4 Physical Exam General: Cooperative, No acute distress, mild distress Heart: Other (bradycardiac 56) Lungs: Clear, Other Abdomen: Normal bowel sounds, Soft, No tenderness, No masses Extremities: No clubbing, No cyanosis, No edema, No tenderness/swelling Skin: No rashes, No breakdown, No significant lesion Review of Systems Review of Systems Parkinson's dementia, smiles, hence limited ROS-she looks comfortable Assessment and Plan Assessmemt and Plan Problems Medical Problems: (1) Fall Status: Acute (2) HTN (hypertension) Status: Chronic (3) Hyponatremia Status: Acute (4) Hypothyroidism Status: Chronic (5) Moderate malnutrition Status: Acute (6) Parkinson's disease Status: Chronic (7) Weakness generalized Status: Acute Comment Review of Relevant I have reviewed the following items edilma (where applicable) has been applied. Labs Laboratory Tests Test 04/28/19 13:50 04/28/19 15:10 04/29/19 08:20 Urine Collection Type Unknown Urine Color Yellow Urine Clarity Clear Urine pH 6.5 Urine Specific [place] 1.010 Urine Protein Negative mg/dL (NEG-TRACE) Urine Glucose (UA) Negative mg/dL (NEG) Urine Ketones (Stick) Negative mg/dL (NEG) Urine Blood Negative (NEG) Urine Nitrite Negative (NEG) Urine Bilirubin Negative (NEG) Urine Urobilinogen Dipstick 0.2 mg/dL (0.2 mg/dL) Urine Leukocyte Esterase Trace (NEG) Urine RBC 1-2 /HPF (0-2) Urine WBC 1-4 /HPF (0-4) Urine Squamous Epithelial Cells Few /LPF Urine Bacteria 0 /HPF (0-FEW) Urine Random Sodium 67 mmol/L (Not Estab.) Vitamin B12 Level 575 pg/mL (247-911) Cortisol PM Sample 12.0 ug/dL (3.1-16.7) White Blood Count 5.7 x10^3/uL (4.0-11.0) Red Blood Count 3.70 x10^6/uL (3.50-5.40) Hemoglobin 11.9 g/dL (12.0-15.5) Hematocrit 34.8 % (36.0-47.0) Mean Corpuscular Volume 94 fL (79-100) Mean Corpuscular Hemoglobin 32 pg (25-35) Mean Corpuscular Hemoglobin Concent 34 g/dL (31-37) Red Cell Distribution Width 13.8 % (11.5-14.5) Platelet Count 193 x10^3/uL (140-400) Neutrophils (%) (Auto) 75 % (31-73) Lymphocytes (%) (Auto) 12 % (24-48) Monocytes (%) (Auto) 13 % (0-9) Eosinophils (%) (Auto) 0 % (0-3) Basophils (%) (Auto) 0 % (0-3) Neutrophils # (Auto) 4.3 x10^3/uL (1.8-7.7) Lymphocytes # (Auto) 0.7 x10^3/uL (1.0-4.8) Monocytes # (Auto) 0.7 x10^3/uL (0.0-1.1) Eosinophils # (Auto) 0.0 x10^3/uL (0.0-0.7) Basophils # (Auto) 0.0 x10^3/uL (0.0-0.2) Sodium Level 132 mmol/L (136-145) Potassium Level 4.1 mmol/L (3.5-5.1) Chloride Level 97 mmol/L (98-107) Carbon Dioxide Level 24 mmol/L (21-32) Anion Gap 11 (6-14) Blood Urea Nitrogen 13 mg/dL (7-20) Creatinine 0.7 mg/dL (0.6-1.0) Estimated GFR (Cockcroft-Gault) 79.3 BUN/Creatinine Ratio 19 (6-20) Glucose Level 85 mg/dL (70-99) Calcium Level 8.4 mg/dL (8.5-10.1) Total Bilirubin 1.2 mg/dL (0.2-1.0) Aspartate Amino Transf (AST/SGOT) 17 U/L (15-37) Alanine Aminotransferase (ALT/SGPT) 9 U/L (14-59) Alkaline Phosphatase 157 U/L (46-116) Total Protein 6.3 g/dL (6.4-8.2) Albumin 3.1 g/dL (3.4-5.0) Albumin/Globulin Ratio 1.0 (1.0-1.7) Thyroid Stimulating Hormone (TSH) 10.852 uIU/mL (0.358-3.74) Cortisol AM Sample 25.2 ug/dL (4.3-22.4) Medications Current Medications Sodium Chloride 500 ml @ 500 mls/hr 1X ONCE IV Last administered on 04/28/19at 10:46; Start 04/28/19 at 10:30; Stop 04/28/19 at 11:29; Status DC Amlodipine Besylate (Norvasc) 5 mg DAILY PO Last administered on 04/28/19at 12:28; Start 04/28/19 at 12:00; Stop 04/29/19 at 09:18; Status DC Carbidopa/Levodopa (Sinemet 25/100) 1 tab Q4HRS PO Last administered on 04/28/19at 17:26; Start 04/28/19 at 12:00 Lactobacillus Rhamnosus (Culturelle) 1 cap BID PO Last administered on 04/28/19at 12:28; Start 04/28/19 at 12:00; Stop 04/29/19 at 09:18; Status DC Levothyroxine Sodium (Synthroid) 137 mcg DAILY PO Last administered on 04/28/19at 12:27; Start 04/28/19 at 12:00; Stop 04/29/19 at 09:17; Status DC Aspirin (Ecotrin) 325 mg [id number] PO Last administered on 04/28/19at 12:27; Start 04/28/19 at 12:00; Stop 04/29/19 at 09:18; Status DC Atorvastatin Calcium (Lipitor) 20 mg QHS PO ; Start 04/28/19 at 21:00; Stop 04/29/19 at 09:18; Status DC Ondansetron HCl (Zofran) 4 mg PRN Q4HRS PRN IV NAUSEA/VOMITING; Start 04/28/19 at 11:30; Stop 04/29/19 at 13:28; Status DC Acetaminophen (Tylenol) 650 mg PRN Q4HRS PRN GT TEMP OVER 100.4F OR MILD PAIN; Start 04/28/19 at 11:30 Al Hydroxide/Mg Hydroxide (Mylanta Plus Xs) 30 ml PRN DAILY PRN PO HEARTBURN / GAS; Start 04/28/19 at 11:30 Clonidine HCl (Catapres) 0.1 mg PRN Q6HRS PRN PO SBP>160 OR DBP>90; Start 04/28/19 at 11:30; Stop 04/29/19 at 13:28; Status DC Sodium Monofluorophosphate (Fleet Adult) 133 ml PRN DAILY PRN [place] CONSTIPATION; Start 04/28/19 at 11:30 Docusate Sodium (Colace) 100 mg PRN BID PRN PO CONSTIPATION; Start 04/28/19 at 11:30 Albuterol Sulfate (Ventolin Neb Soln) 2.5 mg PRN Q4HRS PRN NEB SHORTNESS OF BREATH; Start 04/28/19 at 11:30 Lorazepam (Ativan) 0.5 mg PRN Q4HRS PRN PO ANXIETY / AGITATION; Start 04/28/19 at 11:30 Sodium Chloride 1,000 ml @ 75 mls/hr [id number] IV Last administered on 04/29/19at 14:40; Start 04/28/19 at 12:00; Stop 04/30/19 at 07:46; Status DC Hydromorphone HCl (Dilaudid) 0.5 mg 1X ONCE IV Last administered on 04/29/19at 08:46; Start 04/29/19 at 08:45; Stop 04/29/19 at 08:46; Status DC Levothyroxine Sodium 68.5 mcg/ Sodium Chloride 5 ml @ 100 mls/hr DAILY IVP ; Start 04/30/19 at 09:00; Stop 04/30/19 at 09:00; Status DC Famotidine (Pepcid Vial) 20 mg QHS IVP Last administered on 04/29/19at 20:58; Start 04/29/19 at 21:00 Enoxaparin Sodium (Lovenox 30mg Syringe) 30 mg Q24H SQ Last administered on 04/30/19at 08:19; Start 04/29/19 at 10:00 Lorazepam (Ativan Inj) 1 mg PRN Q4HRS PRN IV ANXIETY / AGITATION; Start 04/29/19 at 09:30 Levothyroxine Sodium 68.5 mcg/ Sodium Chloride 5 ml @ 100 mls/hr DAILY IVP ; Start 04/30/19 at 09:00; Stop 04/30/19 at 09:00; Status DC Levothyroxine Sodium 68.5 mcg/ Sodium Chloride 5 ml @ 100 mls/hr DAILY IVP Last administered on 04/30/19at 08:19; Start 04/29/19 at 13:45 Amino Acids/ Glycerin/ Electrolytes 1,000 ml @ 75 mls/hr [id number] IV Last administered on 04/30/19at 08:18; Start 04/30/19 at 07:45 Active Scripts Active Culturelle (Lactobacillus Rhamnosus Gg) 1 Each Cap.sprink 1 Cap PO BID 30 Days Cipro (Ciprofloxacin Hcl) 250 Mg Tablet 250 Mg PO DAILY 10 Days [Hydrocodone/Acetaminophen] 1 TAB Tablet 1 Tab PO PRN Q6HRS PRN Reported Amlodipine Besylate 5 Mg Tablet 5 Mg PO DAILY Sinemet 25-100 Mg Tablet (Carbidopa/Levodopa) 1 Each Tablet 1 Tab PO Q4HRS Levothyroxine Sodium 137 Mcg Tablet 1 Tab PO DAILY Vitals/I & O Vital Sign - Last 24 Hours 04/29/19 04/29/19 04/29/19 04/29/19 11:23 15:32 19:15 20:00 Temp 98.9 98.3 98.1 98.9 98.3 98.1 Pulse 70 70 91 Resp 18 16 16 B/P (MAP) 111/64 (80) 139/73 (95) 175/91 (119) Pulse Ox 93 93 94 O2 Delivery Room Air Room Air Room Air Room Air 04/29/19 04/30/19 04/30/19 23:15 03:40 07:00 Temp 98.3 98.4 98.4 98.3 98.4 98.4 Pulse 69 72 83 Resp 16 16 24 B/P (MAP) 158/73 (101) 150/69 (96) 147/77 (100) Pulse Ox 94 95 93 O2 Delivery Room Air Room Air Room Air Intake and Output 04/29/19 04/29/19 04/30/19 14:59 22:59 06:59 Intake Total 0 ml 0 ml 0 ml Balance 0 ml 0 ml 0 ml WEI BURNETTE MD Apr 30, 2019 10:54
[2019-04-30 11:31] VITALS: BP 142/65
[2019-04-30] MEDS ORDERED: LORA0.5T96 PO (11:54)
[2019-04-30] MEDS ORDERED: Hydrocodone/Acetaminophen PO (11:54)
[2019-04-30] MEDS ORDERED: ALBU2.5V8 NEB (11:54)
--- NOTE | 2019-04-30 11:56 | SNU/HH DC ---
DISCHARGE ORDERS DISCHARGE INFORMATION: DISCHARGE DATE: Apr 30, 2019 FINAL DIAGNOSIS Problems Medical Problems: (1) Fall Status: Acute (2) HTN (hypertension) Status: Chronic (3) Hyponatremia Status: Acute (4) Hypothyroidism Status: Chronic (5) Moderate malnutrition Status: Acute (6) Parkinson's disease Status: Chronic (7) Weakness generalized Status: Acute CONDITION ON DISCHARGE: Stable CODE STATUS: Code Status: DNR/DNI SHELTER: SNF STAY <30 DAYS: Yes HOSPICE: HOSPICE: Yes HOSPICE EVAL & TREAT: Yes LTAC: ADMIT TO LTAC: No POST DISCHARGE ORDERS: ACTIVITY ORDERS: Bedrest today WEIGHT BEARING STATUS: Non weight bearing BATHING ORDERS: Shower-keep dressing dry DIET AFTER DISCHARGE: pleasure feeds if fails special delivery messenger WOUND/INCISION CARE: Keep wound/cast CDI FOLLOW-UP: PHYSICIAN FOLLOW-UP: hospice, dnr DISCHARGE MEDICATIONS: Home Meds Active Scripts Lorazepam (ATIVAN) 0.5 Mg Tablet, 0.5 MG PO PRN Q4HRS PRN for ANXIETY / AGITATION, #30 TAB Prov:WEI BURNETTE MD 04/30/19 Albuterol Sulfate (Proair Hfa) 8.5 Gm Hfa.aer.ad, 2.5 MG NEB PRN Q4HRS PRN for SHORTNESS OF BREATH for 30 Days, INHALER Prov:EWI BURNETTE MD 04/30/19 [Hydrocodone/Acetaminophen] 1 TAB TABLET No Conflict Check, 1 TAB PO PRN Q6HRS PRN for PAIN, #30 Prov:WEI BURNETTE MD 04/30/19 Reported Medications Carbidopa/Levodopa (SINEMET 25-100 MG TABLET) 1 Each Tablet, 1 TAB PO Q4HRS, TAB 03/10/18 Discontinued Reported Medications Amlodipine Besylate (AMLODIPINE BESYLATE) 5 Mg Tablet, 5 MG PO DAILY 03/10/18 Levothyroxine Sodium (LEVOTHYROXINE SODIUM) 137 Mcg Tablet, 1 TAB PO DAILY, #30 TAB 5 Refills 01/13/15 Discontinued Scripts Lactobacillus Rhamnosus Gg (CULTURELLE) 1 Each Cap.sprink, 1 CAP PO BID for 30 Days, #60 CAP 0 Refills Prov:CICI LOFTON MD 03/12/18 Ciprofloxacin Hcl (CIPRO) 250 Mg Tablet, 250 MG PO DAILY for 10 Days, #10 TAB 0 Refills Prov:CICI LOFTON MD 03/12/18 WEI BURNETTE MD Apr 30, 2019 11:56
--- NOTE | 2019-04-30 11:57 | PDOC3 ---
Discharge Summary Visit Information Date of Admission: Apr 28, 2019 Date of Discharge: Apr 30, 2019 Admitting Diagnosis Comment: Bradycardia as low as 20s Hypothyroidism on Synthroid with TSH 10 Geriatric Fall risk Hyponatremia POA, better Hypotension POA, resolved Dysphagia DNR HOSPICE Final Diagnosis Problems Medical Problems: (1) Fall Status: Acute (2) HTN (hypertension) Status: Chronic (3) Hyponatremia Status: Acute (4) Hypothyroidism Status: Chronic (5) Moderate malnutrition Status: Acute (6) Parkinson's disease Status: Chronic (7) Weakness generalized Status: Acute Brief Hospital Course Allergies Allergies Coded Allergies Type Severity Reaction Last Updated Verified No Known Medication Allergies Allergy Unknown 01/08/16 Yes Vital Signs Vital Signs Date Time Temp Pulse Resp B/P (MAP) Pulse Ox O2 Delivery O2 Flow Rate FiO2 04/30/19 11:31 98.2 77 22 142/65 (90) 94 Room Air 98.2 Lab Results Laboratory Tests Test 04/28/19 13:50 04/28/19 15:10 04/29/19 08:20 Urine Collection Type Unknown Urine Color Yellow Urine Clarity Clear Urine pH 6.5 Urine Specific [place] 1.010 Urine Protein Negative mg/dL (NEG-TRACE) Urine Glucose (UA) Negative mg/dL (NEG) Urine Ketones (Stick) Negative mg/dL (NEG) Urine Blood Negative (NEG) Urine Nitrite Negative (NEG) Urine Bilirubin Negative (NEG) Urine Urobilinogen Dipstick 0.2 mg/dL (0.2 mg/dL) Urine Leukocyte Esterase Trace (NEG) Urine RBC 1-2 /HPF (0-2) Urine WBC 1-4 /HPF (0-4) Urine Squamous Epithelial Cells Few /LPF Urine Bacteria 0 /HPF (0-FEW) Urine Random Sodium 67 mmol/L (Not Estab.) Vitamin B12 Level 575 pg/mL (247-911) Cortisol PM Sample 12.0 ug/dL (3.1-16.7) White Blood Count 5.7 x10^3/uL (4.0-11.0) Red Blood Count 3.70 x10^6/uL (3.50-5.40) Hemoglobin 11.9 g/dL (12.0-15.5) Hematocrit 34.8 % (36.0-47.0) Mean Corpuscular Volume 94 fL (79-100) Mean Corpuscular Hemoglobin 32 pg (25-35) Mean Corpuscular Hemoglobin Concent 34 g/dL (31-37) Red Cell Distribution Width 13.8 % (11.5-14.5) Platelet Count 193 x10^3/uL (140-400) Neutrophils (%) (Auto) 75 % (31-73) Lymphocytes (%) (Auto) 12 % (24-48) Monocytes (%) (Auto) 13 % (0-9) Eosinophils (%) (Auto) 0 % (0-3) Basophils (%) (Auto) 0 % (0-3) Neutrophils # (Auto) 4.3 x10^3/uL (1.8-7.7) Lymphocytes # (Auto) 0.7 x10^3/uL (1.0-4.8) Monocytes # (Auto) 0.7 x10^3/uL (0.0-1.1) Eosinophils # (Auto) 0.0 x10^3/uL (0.0-0.7) Basophils # (Auto) 0.0 x10^3/uL (0.0-0.2) Sodium Level 132 mmol/L (136-145) Potassium Level 4.1 mmol/L (3.5-5.1) Chloride Level 97 mmol/L (98-107) Carbon Dioxide Level 24 mmol/L (21-32) Anion Gap 11 (6-14) Blood Urea Nitrogen 13 mg/dL (7-20) Creatinine 0.7 mg/dL (0.6-1.0) Estimated GFR (Cockcroft-Gault) 79.3 BUN/Creatinine Ratio 19 (6-20) Glucose Level 85 mg/dL (70-99) Calcium Level 8.4 mg/dL (8.5-10.1) Total Bilirubin 1.2 mg/dL (0.2-1.0) Aspartate Amino Transf (AST/SGOT) 17 U/L (15-37) Alanine Aminotransferase (ALT/SGPT) 9 U/L (14-59) Alkaline Phosphatase 157 U/L (46-116) Total Protein 6.3 g/dL (6.4-8.2) Albumin 3.1 g/dL (3.4-5.0) Albumin/Globulin Ratio 1.0 (1.0-1.7) Thyroid Stimulating Hormone (TSH) 10.852 uIU/mL (0.358-3.74) Cortisol AM Sample 25.2 ug/dL (4.3-22.4) Brief Hospital Course Ms. Puga is a 88 old [sex] who presented with [ ] Discharge Information Condition at Discharge: Comment (hospice) Disposition/Orders: D/C to Home w/ Hospice Scheduled Carbidopa/Levodopa (Sinemet 25-100 Mg Tablet) 1 Each Tablet, 1 TAB PO Q4HRS, (Reported) Entered as Reported by: LORETO BLOUNT on 03/10/182029 Last Action: Continued on 04/28/191107 by CHRISTOPHER VALADEZ MD Scheduled PRN Albuterol Sulfate (Proair Hfa) 8.5 Gm Hfa.aer.ad, 2.5 MG NEB PRN Q4HRS PRN for SHORTNESS OF BREATH for 30 Days Prescribed by: WEI BURNETTE on 04/30/19 1154 Lorazepam (Ativan) 0.5 Mg Tablet, 0.5 MG PO PRN Q4HRS PRN for ANXIETY / AGITATION, #30 Prescribed by: WEI BURNETTE on 04/30/19 1154 [Hydrocodone/Acetaminophen] 1 TAB TABLET, 1 TAB PO PRN Q6HRS PRN for PAIN, #30 Prescribed by: WEI BURNETTE on 04/30/19 1154 Discontinued Medications Amlodipine Besylate (Amlodipine Besylate) 5 Mg Tablet, 5 MG PO DAILY, (Reported) Entered as Reported by: LORETO BLOUNT on 03/10/182046 Last Action: Continued on 04/28/191107 by CHRISTOPHER VALADEZ MD Ciprofloxacin Hcl (Cipro) 250 Mg Tablet, 250 MG PO DAILY for 10 Days, #10 Ref 0 Prescribed by: CICI LOFTON on 03/12/181402 Last Action: HELD on 04/28/191107 by CHRISTOPHER VALADEZ MD Lactobacillus Rhamnosus Gg (Culturelle) 1 Each Cap.sprink, 1 CAP PO BID for 30 Days, #60 Ref 0 Prescribed by: CICI LOFTON on 03/12/18 140 Last Action: Continued on 04/28/191107 by CHRISTOPHER VALADEZ MD Levothyroxine Sodium (Levothyroxine Sodium) 137 Mcg Tablet, 1 TAB PO DAILY, #30 Ref 5 (Reported) Entered as Reported by: MICHAEL ROGER on 01/13/15 1040 Last Action: Continued on 04/28/19 1108 by MD YOMAIRA RUIZ CHERRIE Y MD Apr 30, 2019 11:57
--- NOTE | 2019-04-30 12:08 | NUR ---
DIANA following up with pt dc plan. Pt and daughter would like for pt to return to [facility] with possible hospice care. DIANA spoke with daughter Roselyn via telephone, phone: [phone] to discuss options. Pt and daughter are agreeable to an information visit from [facility] and will begin service if pt qualifies and the meeting goes well. DIANA phoned and faxed referral to [facility], phone: [phone], fax: [phone]. Patricio with [facility] will meet with pt and daughter today SW will await hospice decision and proceed accordingly. Pt's RN has been notified.
--- NOTE | 2019-04-30 12:45 | PDOC ---
PROGRESS NOTES Assessment Problems Medical Problems: (1) Fall Status: Acute (2) HTN (hypertension) Status: Chronic (3) Hyponatremia Status: Acute (4) Hypothyroidism Status: Chronic (5) Moderate malnutrition Status: Acute (6) Parkinson's disease Status: Chronic (7) Weakness generalized Status: Acute Metabolic encephalopathy. Generalized weakness Gait disorder. 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 Aortic atherosclerosis. Cardiomegaly. Hypothyroidism, TSH 10.85 Pulmonary lesions, malignant? 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 Depression. No evidence of acute large CVA Plan Note plans to discharge with hospice Continue ASA 325 mg daily. Increased Sinemet 25/100 mg to q4h. Treat hypothyroidism per medical team. Treat the underlying medical diseases. Subjective No complaints Objective Vital Signs Date Time Temp Pulse Resp B/P (MAP) Pulse Ox O2 Delivery O2 Flow Rate FiO2 04/30/19 11:31 98.2 77 22 142/65 (90) 94 Room Air 98.2 Intake and Output 04/30/19 06:59 Intake Total 0 ml Balance 0 ml Intake Oral 0 ml # Voids 3 PHYSICAL EXAM Alert. Silent. Follows a few commands. PERRL. EOMI. CN: no focal findings. Muscle tone: normal. Muscle strength: 4/5 DTR: 1+ Plantar reflex: silent Gait: not examined in bed. Sensory exam: no abnormal findings. No cerebellar signs elicited. Review of Relevant I have reviewed the following items edilma (where applicable) has been applied. Labs Laboratory Tests Test 04/28/19 13:50 04/28/19 15:10 04/29/19 08:20 Urine Collection Type Unknown Urine Color Yellow Urine Clarity Clear Urine pH 6.5 Urine Specific [place] 1.010 Urine Protein Negative mg/dL (NEG-TRACE) Urine Glucose (UA) Negative mg/dL (NEG) Urine Ketones (Stick) Negative mg/dL (NEG) Urine Blood Negative (NEG) Urine Nitrite Negative (NEG) Urine Bilirubin Negative (NEG) Urine Urobilinogen Dipstick 0.2 mg/dL (0.2 mg/dL) Urine Leukocyte Esterase Trace (NEG) Urine RBC 1-2 /HPF (0-2) Urine WBC 1-4 /HPF (0-4) Urine Squamous Epithelial Cells Few /LPF Urine Bacteria 0 /HPF (0-FEW) Urine Random Sodium 67 mmol/L (Not Estab.) Vitamin B12 Level 575 pg/mL (247-911) Cortisol PM Sample 12.0 ug/dL (3.1-16.7) White Blood Count 5.7 x10^3/uL (4.0-11.0) Red Blood Count 3.70 x10^6/uL (3.50-5.40) Hemoglobin 11.9 g/dL (12.0-15.5) Hematocrit 34.8 % (36.0-47.0) Mean Corpuscular Volume 94 fL (79-100) Mean Corpuscular Hemoglobin 32 pg (25-35) Mean Corpuscular Hemoglobin Concent 34 g/dL (31-37) Red Cell Distribution Width 13.8 % (11.5-14.5) Platelet Count 193 x10^3/uL (140-400) Neutrophils (%) (Auto) 75 % (31-73) Lymphocytes (%) (Auto) 12 % (24-48) Monocytes (%) (Auto) 13 % (0-9) Eosinophils (%) (Auto) 0 % (0-3) Basophils (%) (Auto) 0 % (0-3) Neutrophils # (Auto) 4.3 x10^3/uL (1.8-7.7) Lymphocytes # (Auto) 0.7 x10^3/uL (1.0-4.8) Monocytes # (Auto) 0.7 x10^3/uL (0.0-1.1) Eosinophils # (Auto) 0.0 x10^3/uL (0.0-0.7) Basophils # (Auto) 0.0 x10^3/uL (0.0-0.2) Sodium Level 132 mmol/L (136-145) Potassium Level 4.1 mmol/L (3.5-5.1) Chloride Level 97 mmol/L (98-107) Carbon Dioxide Level 24 mmol/L (21-32) Anion Gap 11 (6-14) Blood Urea Nitrogen 13 mg/dL (7-20) Creatinine 0.7 mg/dL (0.6-1.0) Estimated GFR (Cockcroft-Gault) 79.3 BUN/Creatinine Ratio 19 (6-20) Glucose Level 85 mg/dL (70-99) Calcium Level 8.4 mg/dL (8.5-10.1) Total Bilirubin 1.2 mg/dL (0.2-1.0) Aspartate Amino Transf (AST/SGOT) 17 U/L (15-37) Alanine Aminotransferase (ALT/SGPT) 9 U/L (14-59) Alkaline Phosphatase 157 U/L (46-116) Total Protein 6.3 g/dL (6.4-8.2) Albumin 3.1 g/dL (3.4-5.0) Albumin/Globulin Ratio 1.0 (1.0-1.7) Thyroid Stimulating Hormone (TSH) 10.852 uIU/mL (0.358-3.74) Cortisol AM Sample 25.2 ug/dL (4.3-22.4) Medications Current Medications Sodium Chloride 500 ml @ 500 mls/hr 1X ONCE IV Last administered on 04/28/19at 10:46; Start 04/28/19 at 10:30; Stop 04/28/19 at 11:29; Status DC Amlodipine Besylate (Norvasc) 5 mg DAILY PO Last administered on 04/28/19at 12:28; Start 04/28/19 at 12:00; Stop 04/29/19 at 09:18; Status DC Carbidopa/Levodopa (Sinemet 25/100) 1 tab Q4HRS PO Last administered on 04/28/19at 17:26; Start 04/28/19 at 12:00 Lactobacillus Rhamnosus (Culturelle) 1 cap BID PO Last administered on 04/28/19at 12:28; Start 04/28/19 at 12:00; Stop 04/29/19 at 09:18; Status DC Levothyroxine Sodium (Synthroid) 137 mcg DAILY PO Last administered on 04/28/19at 12:27; Start 04/28/19 at 12:00; Stop 04/29/19 at 09:17; Status DC Aspirin (Ecotrin) 325 mg [id number] PO Last administered on 04/28/19at 12:27; Start 04/28/19 at 12:00; Stop 04/29/19 at 09:18; Status DC Atorvastatin Calcium (Lipitor) 20 mg QHS PO ; Start 04/28/19 at 21:00; Stop 04/29/19 at 09:18; Status DC Ondansetron HCl (Zofran) 4 mg PRN Q4HRS PRN IV NAUSEA/VOMITING; Start 04/28/19 at 11:30; Stop 04/29/19 at 13:28; Status DC Acetaminophen (Tylenol) 650 mg PRN Q4HRS PRN GT TEMP OVER 100.4F OR MILD PAIN; Start 04/28/19 at 11:30 Al Hydroxide/Mg Hydroxide (Mylanta Plus Xs) 30 ml PRN DAILY PRN PO HEARTBURN / GAS; Start 04/28/19 at 11:30 Clonidine HCl (Catapres) 0.1 mg PRN Q6HRS PRN PO SBP>160 OR DBP>90; Start 04/28/19 at 11:30; Stop 04/29/19 at 13:28; Status DC Sodium Monofluorophosphate (Fleet Adult) 133 ml PRN DAILY PRN MS CONSTIPATION; Start 04/28/19 at 11:30 Docusate Sodium (Colace) 100 mg PRN BID PRN PO CONSTIPATION; Start 04/28/19 at 11:30 Albuterol Sulfate (Ventolin Neb Soln) 2.5 mg PRN Q4HRS PRN NEB SHORTNESS OF BREATH; Start 04/28/19 at 11:30 Lorazepam (Ativan) 0.5 mg PRN Q4HRS PRN PO ANXIETY / AGITATION; Start 04/28/19 at 11:30 Sodium Chloride 1,000 ml @ 75 mls/hr [id number] IV Last administered on 04/29/19at 14:40; Start 04/28/19 at 12:00; Stop 04/30/19 at 07:46; Status DC Hydromorphone HCl (Dilaudid) 0.5 mg 1X ONCE IV Last administered on 04/29/19at 08:46; Start 04/29/19 at 08:45; Stop 04/29/19 at 08:46; Status DC Levothyroxine Sodium 68.5 mcg/ Sodium Chloride 5 ml @ 100 mls/hr DAILY IVP ; Start 04/30/19 at 09:00; Stop 04/30/19 at 09:00; Status DC Famotidine (Pepcid Vial) 20 mg QHS IVP Last administered on 04/29/19at 20:58; Start 04/29/19 at 21:00 Enoxaparin Sodium (Lovenox 30mg Syringe) 30 mg Q24H SQ Last administered on 04/30/19at 08:19; Start 04/29/19 at 10:00 Lorazepam (Ativan Inj) 1 mg PRN Q4HRS PRN IV ANXIETY / AGITATION; Start 04/29/19 at 09:30 Levothyroxine Sodium 68.5 mcg/ Sodium Chloride 5 ml @ 100 mls/hr DAILY IVP ; Start 04/30/19 at 09:00; Stop 04/30/19 at 09:00; Status DC Levothyroxine Sodium 68.5 mcg/ Sodium Chloride 5 ml @ 100 mls/hr DAILY IVP Last administered on 04/30/19at 08:19; Start 04/29/19 at 13:45 Amino Acids/ Glycerin/ Electrolytes 1,000 ml @ 75 mls/hr [id number] IV Last administered on 04/30/19at 08:18; Start 04/30/19 at 07:45 Active Scripts Active Ativan (Lorazepam) 0.5 Mg Tablet 0.5 Mg PO PRN Q4HRS PRN Proair Hfa (Albuterol Sulfate) 8.5 Gm Hfa.aer.ad 2.5 Mg NEB PRN Q4HRS PRN 30 Days [Hydrocodone/Acetaminophen] 1 TAB Tablet 1 Tab PO PRN Q6HRS PRN Reported Sinemet 25-100 Mg Tablet (Carbidopa/Levodopa) 1 Each Tablet 1 Tab PO Q4HRS Vitals/I & O Vital Sign - Last 24 Hours 04/29/19 04/29/19 04/29/19 04/29/19 15:32 19:15 20:00 23:15 Temp 98.3 98.1 98.3 98.3 98.1 98.3 Pulse 70 91 69 Resp 16 16 16 B/P (MAP) 139/73 (95) 175/91 (119) 158/73 (101) Pulse Ox 93 94 94 O2 Delivery Room Air Room Air Room Air Room Air 04/30/19 04/30/19 04/30/19 04/30/19 03:40 07:00 08:00 11:31 Temp 98.4 98.4 98.2 98.4 98.4 98.2 Pulse 72 83 77 Resp 16 24 22 B/P (MAP) 150/69 (96) 147/77 (100) 142/65 (90) Pulse Ox 95 93 94 O2 Delivery Room Air Room Air Room Air Room Air Intake and Output 04/29/19 04/29/19 04/30/19 14:59 22:59 06:59 Intake Total 0 ml 0 ml 0 ml Balance 0 ml 0 ml 0 ml Images BRAIN W/O CONTRAST History: Mental status changes. Weakness. Technique: Multiplanar, multi sequential MR imaging was performed of the brain without contrast. Comparison: Head CT April 28, 2019. Brain MRI January 07, 2016 Findings: No acute infarct. No intracranial hemorrhage. No mass effect. No hydrocephalus. Small bilateral cerebellar infarcts. Small chronic left medial thalamic infarct. Chronic left occipital lobe infarct. Moderate brain parenchymal volume loss. Moderate focal and confluent foci of T2/FLAIR hyperintensity within the hemispheric white matter, most often due to chronic microvascular ischemia. Imaged orbits are unremarkable. Mild bilateral maxillary sinus mucosal thickening. Mastoid air cells are clear. Impression: 1. No acute intracranial abnormality. 2. Chronic left occipital infarct. 3. Chronic left medial thalamic and small bilateral cerebellar lacunar infarcts. 4. Moderate brain parenchymal volume loss and sequela of chronic microvascular ischemia. ARLENE JOHNSON MD Apr 30, 2019 12:45
--- NOTE | 2019-04-30 14:11 | NUR ---
DIANA following up with pt dc plan. Per Mariola with [facility], pt has been approved to begin inpatient hospice care at [facility], pending finalizing details and contract. DIANA is await contract to be faxed over for signature. CM director and admissions have been notified. Addendum: 04/30/19 at 1413 by OWEN ORTIZ Contact information for [facility] is: [phone].
[2019-04-30 15:26] VITALS: BP 114/63
[2019-04-30 19:10] VITALS: BP 143/83
[2019-04-30] MEDS: FAMOTIDINE 20 MG/2 ML VIAL IVP SCH (21:11)
[2019-04-30 23:10] VITALS: BP 115/66
[2019-05-01] MEDS: AMINO AC 3%/ELECTROLYTE/GLYCER 1,000 ML IV SCH ×2 (01:41→09:01)
[2019-05-01] MEDS: CARBIDOPA/LEVODOPA 25/100MG TABLET PO SCH ×5 (02:20→15:51)
[2019-05-01 03:10] VITALS: BP 165/74
[2019-05-01 07:00] VITALS: BP 153/76
[2019-05-01] MEDS: LEVOTHYROXINE SODIUM IVP SCH (09:01)
[2019-05-01] MEDS: ENOXAPARIN 30 MG/0.3 ML SYRINGE. SQ SCH (09:01)
[2019-05-01] MEDS: NORMAL SALINE IVP SCH (09:01)
[2019-05-01 11:00] VITALS: BP 125/65
--- NOTE | 2019-05-01 11:39 | PDOC3 ---
Discharge Summary Visit Information Date of Admission: Apr 28, 2019 Date of Discharge: May 01, 2019 Admitting Diagnosis Comment: Bradycardia as low as 20s Hypothyroidism on Synthroid with TSH 10 Geriatric Fall risk Hyponatremia POA, better Hypotension POA, resolved Dysphagia DNR HOSPICE Final Diagnosis Problems Medical Problems: (1) Fall Status: Acute (2) HTN (hypertension) Status: Chronic (3) Hyponatremia Status: Acute (4) Hypothyroidism Status: Chronic (5) Moderate malnutrition Status: Acute (6) Parkinson's disease Status: Chronic (7) Weakness generalized Status: Acute Brief Hospital Course Allergies Allergies Coded Allergies Type Severity Reaction Last Updated Verified No Known Medication Allergies Allergy Unknown 01/08/16 Yes Vital Signs Vital Signs Date Time Temp Pulse Resp B/P (MAP) Pulse Ox O2 Delivery O2 Flow Rate FiO2 05/01/19 08:00 Room Air 05/01/19 07:00 98.1 69 16 153/76 (101) 95 98.1 Brief Hospital Course Ms. Puga is a 88 old [sex] who presented with [ ] pls refer to discharge summary done yesterday Patient is to go home with home hospice today They do not want inpatient hospice Does not want to be separate from the MAR, DNR rx all on chart PAssed dysphagia diet thin liq Discharge Information Condition at Discharge: Comment (hospcie) Disposition/Orders: D/C to Home w/ Hospice Scheduled Carbidopa/Levodopa (Sinemet 25-100 Mg Tablet) 1 Each Tablet, 1 TAB PO Q4HRS, (Reported) Entered as Reported by: LORETO BLOUNT on 03/10/182029 Last Action: Continued on 04/28/19 1108 by CHRISTOPHER VALADEZ MD Scheduled PRN Albuterol Sulfate (Proair Hfa) 8.5 Gm Hfa.aer.ad, 2.5 MG NEB PRN Q4HRS PRN for SHORTNESS OF BREATH for 30 Days Prescribed by: WEI BURNETTE on 04/30/19 1154 Lorazepam (Ativan) 0.5 Mg Tablet, 0.5 MG PO PRN Q4HRS PRN for ANXIETY / AGITATI ON, #30 Prescribed by: WEI BURNETTE on 04/30/19 1154 [Hydrocodone/Acetaminophen] 1 TAB TABLET, 1 TAB PO PRN Q6HRS PRN for PAIN, #30 Prescribed by: WEI BURNETTE on 04/30/19 1154 Discontinued Medications Amlodipine Besylate (Amlodipine Besylate) 5 Mg Tablet, 5 MG PO DAILY, (Reported) Entered as Reported by: LORETO BLOUNT on 03/10/182046 Last Action: Continued on 04/28/191107 by CHRISTOPHER VALADEZ MD Ciprofloxacin Hcl (Cipro) 250 Mg Tablet, 250 MG PO DAILY for 10 Days, #10 Ref 0 Prescribed by: CICI LOFTON on 03/12/181402 Last Action: HELD on 04/28/191107 by CHRISTOPHER VALADEZ MD Lactobacillus Rhamnosus Gg (Culturelle) 1 Each Cap.sprink, 1 CAP PO BID for 30 Days, #60 Ref 0 Prescribed by: CICI LOFTON on 03/12/181402 Last Action: Continued on 04/28/191107 by CHRISTOPHER VALADEZ MD Levothyroxine Sodium (Levothyroxine Sodium) 137 Mcg Tablet, 1 TAB PO DAILY, #30 Ref 5 (Reported) Entered as Reported by: MICHAEL ROGER on 01/13/15 1040 Last Action: Continued on 04/28/191107 by MD YOMAIRA RUIZ CHERRIE Y MD May 01, 2019 11:39
--- NOTE | 2019-05-01 12:26 | PDOC ---
PROGRESS NOTES Assessment Problems Medical Problems: (1) Fall Status: Acute (2) HTN (hypertension) Status: Chronic (3) Hyponatremia Status: Acute (4) Hypothyroidism Status: Chronic (5) Moderate malnutrition Status: Acute (6) Parkinson's disease Status: Chronic (7) Weakness generalized Status: Acute Metabolic encephalopathy. Generalized weakness Gait disorder. 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 Aortic atherosclerosis. Cardiomegaly. Hypothyroidism, TSH 10.85 Pulmonary lesions, malignant? 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 Depression. No evidence of acute large CVA Plan Note plans to discharge with hospice Continue ASA 325 mg daily. Increased Sinemet 25/100 mg to q4h. Treat hypothyroidism per medical team. Treat the underlying medical diseases. Subjective None Objective Vital Signs Date Time Temp Pulse Resp B/P (MAP) Pulse Ox O2 Delivery O2 Flow Rate FiO2 05/01/19 11:00 98.1 88 18 125/65 (85) 97 Room Air 98.1 Intake and Output 05/01/19 07:00 Intake Total 50 ml Output Total 1 ml Balance 49 ml Intake Oral 50 ml Output Stool Total 1 ml # Voids 7 PHYSICAL EXAM Alert. Silent. Follows a few commands. PERRL. EOMI. CN: no focal findings. Muscle tone: normal. Muscle strength: 4/5 DTR: 1+ Plantar reflex: silent Gait: not examined in bed. Sensory exam: no abnormal findings. No cerebellar signs elicited. Review of Relevant I have reviewed the following items edilma (where applicable) has been applied. Labs Microbiology 04/28/19 Urine Culture - Final, Complete 04/28/19 Urine Culture Result 1 (GUILHERME) - Final, Complete Medications Current Medications Sodium Chloride 500 ml @ 500 mls/hr 1X ONCE IV Last administered on 04/28/19at 10:46; Start 04/28/19 at 10:30; Stop 04/28/19 at 11:29; Status DC Amlodipine Besylate (Norvasc) 5 mg DAILY PO Last administered on 04/28/19at 12:28; Start 04/28/19 at 12:00; Stop 04/29/19 at 09:18; Status DC Carbidopa/Levodopa (Sinemet 25/100) 1 tab Q4HRS PO Last administered on 05/01/19at 12:04; Start 04/28/19 at 12:00 Lactobacillus Rhamnosus (Culturelle) 1 cap BID PO Last administered on 04/28/19at 12:28; Start 04/28/19 at 12:00; Stop 04/29/19 at 09:18; Status DC Levothyroxine Sodium (Synthroid) 137 mcg DAILY PO Last administered on 04/28/19at 12:27; Start 04/28/19 at 12:00; Stop 04/29/19 at 09:17; Status DC Aspirin (Ecotrin) 325 mg DAILYWBKFT PO Last administered on 04/28/19at 12:27; Start 04/28/19 at 12:00; Stop 04/29/19 at 09:18; Status DC Atorvastatin Calcium (Lipitor) 20 mg QHS PO ; Start 04/28/19 at 21:00; Stop 04/29/19 at 09:18; Status DC Ondansetron HCl (Zofran) 4 mg PRN Q4HRS PRN IV NAUSEA/VOMITING; Start 04/28/19 at 11:30; Stop 04/29/19 at 13:28; Status DC Acetaminophen (Tylenol) 650 mg PRN Q4HRS PRN GT TEMP OVER 100.4F OR MILD PAIN Last administered on 04/30/19at 13:34; Start 04/28/19 at 11:30 Al Hydroxide/Mg Hydroxide (Mylanta Plus Xs) 30 ml PRN DAILY PRN PO HEARTBURN / GAS; Start 04/28/19 at 11:30 Clonidine HCl (Catapres) 0.1 mg PRN Q6HRS PRN PO SBP>160 OR DBP>90; Start 04/28/19 at 11:30; Stop 04/29/19 at 13:28; Status DC Sodium Monofluorophosphate (Fleet Adult) 133 ml PRN DAILY PRN AL CONSTIPATION; Start 04/28/19 at 11:30 Docusate Sodium (Colace) 100 mg PRN BID PRN PO CONSTIPATION; Start 04/28/19 at 11:30 Albuterol Sulfate (Ventolin Neb Soln) 2.5 mg PRN Q4HRS PRN NEB SHORTNESS OF [place] ATH; Start 04/28/19 at 11:30 Lorazepam (Ativan) 0.5 mg PRN Q4HRS PRN PO ANXIETY / AGITATION; Start 04/28/19 at 11:30 Sodium Chloride 1,000 ml @ 75 mls/hr [id number] IV Last administered on 04/29/19at 14:40; Start 04/28/19 at 12:00; Stop 04/30/19 at 07:46; Status DC Hydromorphone HCl (Dilaudid) 0.5 mg 1X ONCE IV Last administered on 04/29/19at 08:46; Start 04/29/19 at 08:45; Stop 04/29/19 at 08:46; Status DC Levothyroxine Sodium 68.5 mcg/ Sodium Chloride 5 ml @ 100 mls/hr DAILY IVP ; Start 04/30/19 at 09:00; Stop 04/30/19 at 09:00; Status DC Famotidine (Pepcid Vial) 20 mg QHS IVP Last administered on 04/30/19at 21:11; Start 04/29/19 at 21:00 Enoxaparin Sodium (Lovenox 30mg Syringe) 30 mg Q24H SQ Last administered on 05/01/19at 09:01; Start 04/29/19 at 10:00 Lorazepam (Ativan Inj) 1 mg PRN Q4HRS PRN IV ANXIETY / AGITATION; Start 04/29/19 at 09:30 Levothyroxine Sodium 68.5 mcg/ Sodium Chloride 5 ml @ 100 mls/hr DAILY IVP ; Start 04/30/19 at 09:00; Stop 04/30/19 at 09:00; Status DC Levothyroxine Sodium 68.5 mcg/ Sodium Chloride 5 ml @ 100 mls/hr DAILY IVP Last administered on 05/01/19at 09:01; Start 04/29/19 at 13:45 Amino Acids/ Glycerin/ Electrolytes 1,000 ml @ 75 mls/hr [id number] IV Last administered on 05/01/19at 01:41; Start 04/30/19 at 07:45 Active Scripts Active Ativan (Lorazepam) 0.5 Mg Tablet 0.5 Mg PO PRN Q4HRS PRN Proair Hfa (Albuterol Sulfate) 8.5 Gm Hfa.aer.ad 2.5 Mg NEB PRN Q4HRS PRN 30 Days [Hydrocodone/Acetaminophen] 1 TAB Tablet 1 Tab PO PRN Q6HRS PRN Reported Sinemet 25-100 Mg Tablet (Carbidopa/Levodopa) 1 Each Tablet 1 Tab PO Q4HRS Vitals/I & O Vital Sign - Last 24 Hours 04/30/19 04/30/19 04/30/19 04/30/19 15:26 19:10 20:00 23:10 Temp 99.2 98.6 99.0 99.2 98.6 99.0 Pulse 99 92 83 Resp 22 20 18 B/P (MAP) 114/63 (80) 143/83 (103) 115/66 (82) Pulse Ox 91 93 94 O2 Delivery Room Air Room Air Room Air Room Air 05/01/19 05/01/19 05/01/19 05/01/19 03:10 07:00 08:00 11:00 Temp 97.9 98.1 98.1 97.9 98.1 98.1 Pulse 95 69 88 Resp 20 16 18 B/P (MAP) 165/74 (104) 153/76 (101) 125/65 (85) Pulse Ox 96 95 97 O2 Delivery Room Air Room Air Room Air Room Air Intake and Output 04/30/19 04/30/19 05/01/19 15:00 23:00 07:00 Intake Total 0 ml 0 ml 50 ml Output Total 1 ml Balance -1 ml 0 ml 50 ml ARLENE JOHNSON MD May 01, 2019 12:26
--- NOTE | 2019-05-01 13:25 | NUR ---
SS following up with discharge planning. Discharge orders received for return to the [facility] with [facility]. SS phoned and faxed discharge orders and clinical to the [facility] and [facility]. Pt will discharge today and return to the [facility] at 1630 via [facility] ambulance. Pt, pt's family, and pt's RN notified.
[2019-05-01 15:00] VITALS: BP 138/61
--- NOTE | 2019-05-01 16:00 | NUR ---
Discharge Note: ALIX KAPLAN [facility] Discharge instructions and discharge home medications reviewed with JOSE JUAN Segura at [facility] and a copy given. All questions have been answered and understanding verbalized. Discontinued lines and drains: Peripheral IV intact. Patient discharged to Hospice with Ambulance Personnel via [facility].
== END 2019-05-01 16:35 | disposition hospice, home (50) | DRG 314 ==
LOC: ER 09:00 → 6 SOUTH 10:25
PROVIDERS: ADMIT Family Medicine; ATTEND Family Medicine
DX: I95.9 Hypotension, unspecified (principal); G93.41 Metabolic encephalopathy; E87.1 Hypo-osmolality and hyponatremia; E44.0 Moderate protein-calorie malnutrition; Z68.1 Body mass index [BMI] 19.9 or less, adult; R00.1 Bradycardia, unspecified; E03.9 Hypothyroidism, unspecified; F32.9 Major depressive disorder, single episode, unspecified; F41.9 Anxiety disorder, unspecified; G20 Parkinson's disease; G93.89 Other specified disorders of brain; M19.90 Unspecified osteoarthritis, unspecified site; I10 Essential (primary) hypertension; I70.0 Atherosclerosis of aorta; I73.9 Peripheral vascular disease, unspecified; W18.39XA Other fall on same level, initial encounter; K21.9 Gastro-esophageal reflux disease without esophagitis; R13.10 Dysphagia, unspecified; Z66 Do not resuscitate; Z79.82 Long term (current) use of aspirin; Z82.49 Family history of ischemic heart disease and other diseases of the circulatory system; Z91.81 History of falling; Z98.1 Arthrodesis status; Y93.89 Activity, other specified; Y92.89 Other specified places as the place of occurrence of the external cause; Y99.8 Other external cause status
CPT/HCPCS: 36415; 70450; 70551; 71045; 71250; 72125; 72131; 80053; 81001; 82533; 82550; 82607; 83735; 84300; 84443; 84484; 85007; 85025; 87086; 93005; 93880; 94640; 96360; J1170; J1650; J3490; J7030; J7040; 92526; 92610; 97116; 99285-25